=== PATIENT | male | born 1940 | race Caucasian/White ===

== ENCOUNTER 2022-04-22 20:42 | Emergency (ER) | payer MEDICARE, OTHER, SELFPAY ==
[2022-04-22 20:48] VITALS: BP 176/76; PULSE 56; RESP 20; TEMP 36.5; O2SAT 100; BMI 20.9
[2022-04-22 21:24] VITALS: BP 172/78; PULSE 53; RESP 12; TEMP 36.4; O2SAT 100
--- NOTE | 2022-04-22 21:34 | PC.NURSE ---
Pt aox3 with family at the bedside. Breaths are even and unlabored. Abd soft and non tender. Skin pink warm and dry. No edema noted. Reports no pain at this time. No apparent distress noted. Pt and family member report being sent by psychiatrist for admission into [facility] for medication review. Reports hx of bipolar disorder and increased agitation/aggression at times. No aggression today. Pt calm and cooperative. Will continue to monitor.
--- NOTE | 2022-04-22 21:40 | ED.GENADULT ---
HPI - General Adult General Chief complaint: General Medical Stated complaint: Med review Time Seen by Provider: 04/22/22 21:39 Source: patient and family Mode of arrival: ambulatory Limitations: no limitations History of Present Illness HPI narrative: Patient history of dementia, bipolar disorder, hypothyroidism on lithium, Lamictal and levothyroxine brought by his for worsening of dementia patient has been wandering in the night had a VD chest with patient's psychiatrist who advised patient to be admitted as inpatient for further evaluation and medication adjustment patient denies any complaints feels that he was brought to the hospital because his wants him to be evaluated does not think anything wrong with him although he admitted that he feel depressed and is forgetful 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 had MRI of brain and previous evaluations at [facility] Related Data Home Medications Medication Instructions Recorded Confirmed lamotrigine 25 mg tablet 1 tab PO DAILY 04/22/22 04/22/22 levothyroxine 100 mcg tablet 1 tab PO DAILY@0630 04/22/22 04/22/22 lithium carbonate 150 mg capsule 1 cap PO BID 04/22/22 04/22/22 Allergies Allergy/AdvReac Type Severity Reaction Status Date / Time No Known Allergies Allergy Verified 04/22/22 21:44 Review of Systems Review of Systems: Yes all other systems are reviewed and are negative [facility] Past Medical History Medical History (Updated 04/22/22 @ 23:59 by Gabriel Hoffman MD) Bipolar 1 disorder Dementia Hypothyroidism Social History Social History Smoked in Last 30 Days: No Use of substances other than those prescribed or required for medical reasons: No Advance Directives: No Physical Exam ED Vital Signs: Vital Signs - 24 hr 04/22/22 20:48 04/22/22 21:24 Temperature 97.7 F 97.6 F Pulse Rate 56 53 Respiratory Rate 20 12 Blood Pressure 176/76 H 172/78 H Pulse Oximetry 100 100 Oxygen Delivery Method Room Air Room Air BMI result Body Mass Index 20.9 Appearance: Alert. Oriented X2-3. No acute distress. Eyes: PERRLA, No Nystagmus ENT: Pharynx normal. Oral Mucosa moist Neck: Normal inspection. Neck supple. CVS: Normal heart rate and rhythm. Pulses normal. Respiratory: No respiratory distress. Equal air entry bilateral, no wheezing/rales/rhonchi Abdomen: Soft and nontender. Bowel sounds are present, no mass palpable, no CVA tenderness Skin: Skin warm and dry. Normal skin color. Normal skin turgor. Extremities: No lower extremity edema. No calf tenderness psych: Stable mood denies any SI or HI no hallucinations Neuro: Oriented X 2-3. No motor deficit. No sensory deficit.No cerebellar signs , cranial nerves II-XII intact Medical Decision Making Medical Decision Making [facility] Narrative: Patient seen by care team for worsening of dementia and decided to let the patient go home to be admitted as a direct admission tomorrow. Patient's agreed with this plan. Lab Data [facility] Lab Attestation statement: I reviewed the patient's lab results. 04/22/22 22:25 04/22/22 22:25 Labs: Lab Results 04/22/22 04/22/22 04/22/22 Range/Units 22:25 22:25 22:25 WBC 7.9 (4.8-10.8) X10*3/uL RBC 4.13 L (4.60-5.80) X10*6/uL Hgb 13.4 L (14.0-18.0) g/dl Hct 39.8 L (42.0-52.0) % MCV 96.4 (80.0-98.0) fL MCH 32.4 (27.0-33.0) pg MCHC 33.7 (31.0-36.0) g/dl RDW 12.8 (11.0-16.0) % Plt Count 236 (160-400) X10*3/uL MPV 9.4 (9.4-12.4) fL Immature Gran % (Auto) 0.5 H (0.0-0.4) % Neut % (Auto) 62.2 (45-73) % Lymph % (Auto) 24.7 (20-40) % [place] % (Auto) 11.1 H (2-11) % Eos % (Auto) 0.6 (0-4) % Baso % (Auto) 0.9 (0-2) % Lymph # (Auto) 2.0 (1.2-4.9) X10*3/uL [place] # (Auto) 0.9 (0.1-1.2) X10*3/uL Eos # (Auto) 0.1 (0.0-0.4) X10*3/uL Baso # (Auto) 0.1 (0.0-0.2) X10*3/uL Abs Immat Gran (auto) 0.04 H (0.00-0.03) X10*3/uL Absolute Neuts (auto) 4.9 (2.0-8.3) x10*3/uL Absolute Nucleated RBC 0.000 (0.0-0.012) X10*3/uL Nucleated RBC % (auto) 0.0 (0.0-0.2) /100WBC Sodium (135-145) mmol/L Potassium (3.3-5.1) mmol/L Chloride (96-108) mmol/L Carbon Dioxide (22-29) mmol/L Anion Gap (12-20) BUN (9-16) mg/dL Creatinine (0.5-1.4) mg/dL Estim Creat Clear Calc Estimated GFR Random Glucose (60-115) mg/dL Calcium (8.4-10.2) mg/dL Magnesium (1.6-2.6) mg/dL Total Bilirubin (0.0-1.0) mg/dL AST (5-37) U/L ALT (0-40) U/L Alkaline Phosphatase (39-117) U/L Total Protein (6.5-8.0) g/dL Albumin (3.5-5.0) g/dL TSH (0.32-4.0) uIU/mL Urine Color Urine Appearance Urine pH (5.0-9.0) Ur Specific [place] (1.005-1.025) Urine Protein (Neg-Trace) mg/dL Urine Glucose (UA) (Negative) mg/dL Urine Ketones (Negative) mg/dL Urine Blood (Negative) Urine Nitrite (Negative) Ur Leukocyte Esterase (Negative) Urine Opiates Screen (Not Detect) Urine Fentanyl Screen (Not Detect) Ur Barbiturates Screen (Not Detect) Ur Phencyclidine Scrn (Not Detect) Ur Amphetamines Screen (Not Detect) U Benzodiazepines Scrn (Not Detect) [place] 0.35 L (0.60-1.20) mmol/L Urine Cocaine Screen (Not Detect) U Marijuana (THC) Screen (Not Detect) COVID-19 (CRISTELA) Negative (Negative) COVID-19 Clin Com See Note 04/22/22 04/22/22 04/22/22 Range/Units 22:25 22:51 22:51 WBC (4.8-10.8) X10*3/uL RBC (4.60-5.80) X10*6/uL Hgb (14.0-18.0) g/dl Hct (42.0-52.0) % MCV (80.0-98.0) fL MCH (27.0-33.0) pg MCHC (31.0-36.0) g/dl RDW (11.0-16.0) % Plt Count (160-400) X10*3/uL MPV (9.4-12.4) fL Immature Gran % (Auto) (0.0-0.4) % Neut % (Auto) (45-73) % Lymph % (Auto) (20-40) % [place] % (Auto) (2-11) % Eos % (Auto) (0-4) % Baso % (Auto) (0-2) % Lymph # (Auto) (1.2-4.9) X10*3/uL [place] # (Auto) (0.1-1.2) X10*3/uL Eos # (Auto) (0.0-0.4) X10*3/uL Baso # (Auto) (0.0-0.2) X10*3/uL Abs Immat Gran (auto) (0.00-0.03) X10*3/uL Absolute Neuts (auto) (2.0-8.3) x10*3/uL Absolute Nucleated RBC (0.0-0.012) X10*3/uL Nucleated RBC % (auto) (0.0-0.2) /100WBC Sodium 139 (135-145) mmol/L Potassium 3.6 (3.3-5.1) mmol/L Chloride 103 (96-108) mmol/L Carbon Dioxide 30 H (22-29) mmol/L Anion Gap 10 L (12-20) BUN 20 H (9-16) mg/dL Creatinine 0.87 (0.5-1.4) mg/dL Estim Creat Clear Calc 56.4 Estimated GFR > 60 Random Glucose 95 (60-115) mg/dL Calcium 9.2 (8.4-10.2) mg/dL Magnesium 2.1 (1.6-2.6) mg/dL Total Bilirubin 0.3 (0.0-1.0) mg/dL AST 21 (5-37) U/L ALT 14 (0-40) U/L Alkaline Phosphatase 59 (39-117) U/L Total Protein 6.7 (6.5-8.0) g/dL Albumin 3.9 (3.5-5.0) g/dL TSH 1.73 (0.32-4.0) uIU/mL Urine Color Yellow Urine Appearance Clear Urine pH 7.0 (5.0-9.0) Ur Specific [place] 1.015 (1.005-1.025) Urine Protein Negative (Neg-Trace) mg/dL Urine Glucose (UA) Negative (Negative) mg/dL Urine Ketones Negative (Negative) mg/dL Urine Blood Negative (Negative) Urine Nitrite Negative (Negative) Ur Leukocyte Esterase Negative (Negative) Urine Opiates Screen Not Detected (Not Detect) Urine Fentanyl Screen Not Detected (Not Detect) Ur Barbiturates Screen Not Detected (Not Detect) Ur Phencyclidine Scrn Not Detected (Not Detect) Ur Amphetamines Screen Not Detected (Not Detect) U Benzodiazepines Scrn Not Detected (Not Detect) [place] (0.60-1.20) mmol/L Urine Cocaine Screen Not Detected (Not Detect) U Marijuana (THC) Screen Not Detected (Not Detect) COVID-19 (CRISTELA) (Negative) COVID-19 Clin Com Independent Interpretation I performed an independent interpretation of an: EKG Interpretation: Sinus bradycardia heart rate 50 beats per minute right bundle-branch block no acute ST T wave changes no acute ischemia Discharge Plan Discharge Clinical Impression: Dementia Patient Disposition: Home, Self-Care Instructions: Dementia (ED) Additional Instructions: Continue your medication and follow up with your psychiatrist Prescriptions: No Action lithium carbonate 150 mg capsule 1 cap PO BID lamotrigine 25 mg tablet 1 tab PO DAILY levothyroxine 100 mcg tablet 1 tab PO DAILY@0630
--- NOTE | 2022-04-22 21:54 | ECG_ITS ---
Test Reason : QTC Blood Pressure : / mmHG Vent. Rate : 050 BPM Atrial Rate : 050 BPM P-R Int : 150 ms QRS Dur : 136 ms QT Int : 498 ms P-R-T Axes : 051 -51 019 degrees QTc Int : 454 ms Sinus bradycardia Right bundle branch block Left anterior fascicular block Bifascicular block Minimal voltage criteria for LVH, may be normal variant ( R in aVL ) Septal infarct , age undetermined Abnormal ECG No previous ECGs available Referred By: Gabriel Hoffman Electronically Signed By:NEWTON WARD MD
--- NOTE | 2022-04-22 22:26 | PHA.MEDREC ---
Pharmacy Consult ? Medication Reconciliation Pharmacy has completed the medication reconciliation. Patient's at bedside, explained that patient was weened off lamotrigine but was initiated back on for 1 tablet a day. Pt did not have PM dose of lithium today.
[2022-04-22 22:31] LABS: MANUAL DIFF FLAG NO
--- NOTE | 2022-04-22 22:32 | MHC.CARE ---
CARE Team made aware that pt may present to for admission to [facility] earlier today by Dr. Bowman. Pt will need medical clearance followed by a crisis assessment. Bed being saved on S1 should pt meet IPLOC.
[2022-04-22 22:36] LABS: Basophils Absolute Auto 0.1 X10*3/uL (0.0-0.2); Basophils Percent Auto 0.9 % (0-2); Eosinophils Absolute Auto 0.1 X10*3/uL (0.0-0.4); Eosinophils Percent Auto 0.6 % (0-4); Hematocrit 39.8 % (42.0-52.0); Hemoglobin 13.4 g/dl (14.0-18.0); Imm Gran Abs Auto 0.04 X10*3/uL (0.00-0.03); Imm Gran Pct Auto 0.5 % (0.0-0.4); Lymphocytes Percent Auto 24.7 % (20-40); Mean Corpuscular HGB Conc 33.7 g/dl (31.0-36.0); Mean Corpuscular Hemoglobin 32.4 pg (27.0-33.0); Mean Corpuscular Volume 96.4 fL (80.0-98.0); Mean Platelet Volume 9.4 fL (9.4-12.4); Monocytes Absolute Auto 0.9 X10*3/uL (0.1-1.2); Monocytes Percent Auto 11.1 % (2-11); Neutrophils Absolute Auto 4.9 x10*3/uL (2.0-8.3); Neutrophils Percent Auto 62.2 % (45-73); Platelet Count 236 X10*3/uL (160-400); Red Blood Count 4.13 X10*6/uL (4.60-5.80); Red Cell Distribution Width 12.8 % (11.0-16.0); White Blood Count 7.9 X10*3/uL (4.8-10.8)
[2022-04-22 22:38] LABS: Lithium 0.35 mmol/L (0.60-1.20)
[2022-04-22 22:53] LABS: Alanine Aminotransferase 14 U/L (0-40); Albumin Level 3.9 g/dL (3.5-5.0); Alkaline Phosphatase 59 U/L (39-117); Anion Gap 10 (12-20); Aspartate Amino Transferase 21 U/L (5-37); Bilirubin Total 0.3 mg/dL (0.0-1.0); Blood Urea Nitrogen 20 mg/dL (9-16); Calcium 9.2 mg/dL (8.4-10.2); Carbon Dioxide 30 mmol/L (22-29); Chloride 103 mmol/L (96-108); Creatinine Clr Calc Pharmacy 56.4; Estimated Glomerular Filt Rate > 60; Glucose Random 95 mg/dL (60-115); Magnesium 2.1 mg/dL (1.6-2.6); Potassium 3.6 mmol/L (3.3-5.1); Sodium 139 mmol/L (135-145); Total Protein 6.7 g/dL (6.5-8.0)
[2022-04-22 23:05] LABS: COVID-19 Test Negative (Negative); IDNOW Serial# 6674DD1D
[2022-04-22 23:05] LABS: Appearance Urine Clear; Color Urine Yellow; Glucose Urine UA Negative (Negative); Leukocyte Esterase Urine Negative (Negative); Nitrite Urine Negative (Negative); Specific Gravity - Urine 1.015 (1.005-1.025); Urine Blood Negative (Negative); Urine Ketones Negative (Negative); Urine Protein Negative (Neg-Trace)
[2022-04-22 23:07] LABS: Thyroid Stimulating Hormone 1.73 uIU/mL (0.32-4.0)
[2022-04-22 23:47] LABS: Amphetamine Screen Urine Not Detected (Not Detect); Barbiturates, Urine Not Detected (Not Detect); Benzodiazepines Screen Urine Not Detected (Not Detect); Cannabinoid Screen Urine Not Detected (Not Detect); Cocaine Screen Urine Not Detected (Not Detect); Fentanyl, urine Not Detected (Not Detect); Opiate Screen Urine Not Detected (Not Detect); Phencyclidine Screen Urine Not Detected (Not Detect)
== END 2022-04-23 00:11 | disposition home or self-care (01) ==
PROVIDERS: Emergency Provider Internal Medicine; PCP Family Medicine
DX: F03.90 Unspecified dementia, unspecified severity, without behavioral disturbance, psychotic disturbance, mood disturbance, and anxiety (principal); E03.9 Hypothyroidism, unspecified; F31.9 Bipolar disorder, unspecified; Z79.899 Other long term (current) drug therapy; Z20.822 Contact with and (suspected) exposure to COVID-19
CPT/HCPCS: 36415; 80053; 80178; 80307; 81003; 83735; 84443; 85025; 87635; 93005; 99284

== ENCOUNTER 2022-04-23 10:10 | Inpatient (IN) | payer MEDICARE, OTHER, SELFPAY ==
[2022-04-23] VITALS (8 sets, daily range): BP systolic 68–168; BP diastolic 30–88; PULSE 50–99; RESP 16–18; TEMP 36.2–37; O2SAT 96–100; BMI 23.8
--- NOTE | 2022-04-23 | ECG_ITS ---
Test Reason : rapid response Blood Pressure : / mmHG Vent. Rate : 075 BPM Atrial Rate : 075 BPM P-R Int : 154 ms QRS Dur : 128 ms QT Int : 432 ms P-R-T Axes : 000 -31 062 degrees QTc Int : 482 ms Normal sinus rhythm Left axis deviation Right bundle branch block Left ventricular hypertrophy Septal infarct , age undetermined Abnormal ECG When compared with ECG of 23-APR-2022 12:38, Nonspecific ST abnormality has improved in lateral leads Referred By: Jorge Medley Electronically Signed By:NEWTON WARD MD
--- NOTE | ~2022-04-23 | CT_ITS ---
EXAMINATION: CT HEAD WITHOUT CONTRAST CLINICAL INFORMATION: Head injury. COMPARISON: None. TECHNIQUE: Contiguous axial imaging was performed from the skull base to vertex without intravenous administration of contrast. Coronal and sagittal reformatted images are performed at the CT scanner. [This CT examination was performed using dose optimization techniques as appropriate, variously including the following: *Automated exposure control *Adjustment of mA and/or kV according to patient size (this includes techniques or standardized protocols for targeted exams where dose is matched to indication/reason for exam; i.e. extremities or head) *Use of iterative reconstruction technique] DLP: 705 mGy-cm. FINDINGS: There is no evidence of acute intracranial hemorrhage or territorial infarction. No abnormal mass-effect or midline shift is seen. [place] to white matter differentiation is well preserved. No extra-axial fluid collections are identified. The ventricles are normal in size. There is no abnormal attenuation within the brain parenchyma. There is no osseous abnormality. The mastoid air cells and visualized portions of the paranasal sinuses are well-aerated. CT/CT head/brain wo IV con IMPRESSION: No acute intracranial pathology.
--- NOTE | 2022-04-23 10:34 | PC.NURSE ---
Per [facility] Dir Celeste Oneill, medical clearance from yesterday will be appropriate and accepted for in-patient admission to [facility] today.
--- NOTE | 2022-04-23 10:37 | ED.PSYCH ---
HPI - Psych General Chief Complaint: Psychiatric Symptoms Stated Complaint: crisis Time Seen by Provider: 04/23/22 10:37 Source: patient and old records reviewed Limitations: no limitations History of Present Illness HPI Narrative: 81 yo male with history of dementia, depression, bipolar disorder, hypothyroidism who presents to the ER as a direct admission to Geriatric Psych unit. He was seen here in the ER last night, had labs performed and was medically cleared. He went home late last night with plan to come back as a direct admit today. His reports worsening dementia with noctural wandering, confusion and aggression for the last several weeks along with worsening depression. Patient's helps to provide history as patient offers no complaints. He claims to be sleeping well, eating well, and with a good mood. His reports he has been getting up several times at night, wandering and confused. He is barely redirectable. Seems to be in a fugue state. He has also been increasingly depressed. 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 He has a long time psychiatrist in [place]. They were tapering him off of Lamotrigine recently which seemed to make his depression worse. His psychiatrist referred him to come here for psych admission and medication adjustments. complaint: altered mental status Onset (ago): week(s) Duration: getting worse Relieving factors: none Exacerbating factors: none Associated psychiatric symptoms: depression Associated symptoms: denies other symptoms Treatments prior to arrival: none Related Data Home Medications Medication Instructions Recorded Confirmed lamotrigine 25 mg tablet 1 tab PO DAILY 04/22/22 04/23/22 levothyroxine 100 mcg tablet 1 tab PO DAILY@0630 04/22/22 04/23/22 lithium carbonate 150 mg capsule 1 cap PO BID 04/22/22 04/23/22 Allergies Allergy/AdvReac Type Severity Reaction Status Date / Time No Known Allergies Allergy Verified 04/22/22 21:44 Review of Systems Review of Systems: Yes all other systems are reviewed and are negative [facility] Past Medical History Medical History (Updated 04/23/22 @ 10:43 by AURORA Walker) Bipolar 1 disorder Dementia Hypothyroidism Social History Social History Advance Directives: No Physical Exam Vital Signs: Vital Signs: Last Vital Signs Temp 98.6 F 04/23/22 10:18 Pulse 72 04/23/22 10:18 Resp 18 04/23/22 10:18 BP 143/68 H 04/23/22 10:18 Pulse Ox 98 04/23/22 10:18 O2 Del Method 04/23/22 10:18 BMI result Body Mass Index 23.8 Appearance: Alert elderly male. Oriented X3. No acute distress. Eyes: Pupils equal, round and reactive to light. ENT: Pharynx normal. Neck: Normal inspection. Neck supple. CVS: Normal heart rate and rhythm. Pulses normal. Respiratory: No respiratory distress. Breath sounds normal. Abdomen: Soft and nontender. +BS x4 Skin: Skin warm and dry. Normal skin color. Normal skin turgor. No rashes. Extremities: No lower extremity edema. Neuro/psych: Oriented X 3. No motor deficit. No sensory deficit. CN II-XII, slow but steady gait Course Course Course Narrative: 81 yo male with history of dementia, bipolar d/o on lithium, hypothyroidism who presents to the ER for evaluation of worsening depression and dementia per his . Plan is for direct admission today to [facility] psych. Will repeat urine and covid swab for admission. Other labs reviewed, medically cleared at this time for psych admit. Reevaluation(s) Reevaluation #1: Upon repeat EKG today there was noted to be some new T-wave inversions compared to yesterday. Based on this lab work was performed including basic metabolic panel and high sensitivity troponin. Troponin is 8 which is not consistent with any evidence of cardiac ischemia. This is reassuring. Repeat EKG was done and was similar from prior today. Patient remains asymptomatic from a cardiac standpoint, no chest pain, shortness a breath, dyspnea on exertion, nausea, diaphoresis, dizziness. Case discussed with Dr. Goodman. At this time patient is medically cleared for psychiatric admission. Time: 14:18 Medical Decision Making Medical Decision Making MDM Narrative: 81 yo male with history of dementia, depression, bipolar, hypothyroid presenting with confusion, agitation and wandering at night along with worsening depression in the setting of medication weaning at home. Not suicidal or offering any complaints. Differential Diagnosis Differential Diagnoses: The differential diagnosis associated with the presentation includes worsening dementia, major depression, bipolar, medication side effects, infection less likely as UA negative yesterday Admission/Observation Consideration of admission/observation: Escalation of care including admission/observation considered will require admission to [facility] unit Consult Healthcare Provider Management of the patient was discussed with: Behavioral Health Provider Lab Data [facility] Lab Attestation statement: I reviewed the patient's lab results. no metabolic derangement, no infection 04/23/22 13:01 04/23/22 13:01 Labs: Lab Results 04/23/22 04/23/22 04/23/22 Range/Units 11:35 12:01 13:01 WBC 7.1 (4.8-10.8) X10*3/uL RBC 4.48 L (4.60-5.80) X10*6/uL Hgb 14.6 (14.0-18.0) g/dl Hct 44.4 (42.0-52.0) % MCV 99.1 H (80.0-98.0) fL MCH 32.6 (27.0-33.0) pg MCHC 32.9 (31.0-36.0) g/dl RDW 12.8 (11.0-16.0) % Plt Count 262 (160-400) X10*3/uL MPV 9.4 (9.4-12.4) fL Immature Gran % (Auto) 0.3 (0.0-0.4) % Neut % (Auto) 66.8 (45-73) % Lymph % (Auto) 21.2 (20-40) % [place] % (Auto) 10.0 (2-11) % Eos % (Auto) 0.4 (0-4) % Baso % (Auto) 1.3 (0-2) % Lymph # (Auto) 1.5 (1.2-4.9) X10*3/uL [place] # (Auto) 0.7 (0.1-1.2) X10*3/uL Eos # (Auto) 0.0 (0.0-0.4) X10*3/uL Baso # (Auto) 0.1 (0.0-0.2) X10*3/uL Abs Immat Gran (auto) 0.02 (0.00-0.03) X10*3/uL Absolute Neuts (auto) 4.7 (2.0-8.3) x10*3/uL Absolute Nucleated RBC 0.000 (0.0-0.012) X10*3/uL Nucleated RBC % (auto) 0.0 (0.0-0.2) /100WBC Sodium (135-145) mmol/L Potassium (3.3-5.1) mmol/L Chloride (96-108) mmol/L Carbon Dioxide (22-29) mmol/L Anion Gap (12-20) BUN (9-16) mg/dL Creatinine (0.5-1.4) mg/dL Estim Creat Clear Calc Estimated GFR Random Glucose (60-115) mg/dL Calcium (8.4-10.2) mg/dL Magnesium (1.6-2.6) mg/dL Troponin I High Sens (<3.5-35.0) ng/L Urine Color Yellow Urine Appearance Clear Urine pH 7.0 (5.0-9.0) Ur Specific [place] 1.010 (1.005-1.025) Urine Protein Negative (Neg-Trace) mg/dL Urine Glucose (UA) Negative (Negative) mg/dL Urine Ketones Negative (Negative) mg/dL Urine Blood Negative (Negative) Urine Nitrite Negative (Negative) Ur Leukocyte Esterase Negative (Negative) COVID-19 (CRISTELA) Negative (Negative) COVID-19 Clin Com See Note 04/23/22 04/23/22 Range/Units 13:01 13:01 WBC (4.8-10.8) X10*3/uL RBC (4.60-5.80) X10*6/uL Hgb (14.0-18.0) g/dl Hct (42.0-52.0) % MCV (80.0-98.0) fL MCH (27.0-33.0) pg MCHC (31.0-36.0) g/dl RDW (11.0-16.0) % Plt Count (160-400) X10*3/uL MPV (9.4-12.4) fL Immature Gran % (Auto) (0.0-0.4) % Neut % (Auto) (45-73) % Lymph % (Auto) (20-40) % [place] % (Auto) (2-11) % Eos % (Auto) (0-4) % Baso % (Auto) (0-2) % Lymph # (Auto) (1.2-4.9) X10*3/uL [place] # (Auto) (0.1-1.2) X10*3/uL Eos # (Auto) (0.0-0.4) X10*3/uL Baso # (Auto) (0.0-0.2) X10*3/uL Abs Immat Gran (auto) (0.00-0.03) X10*3/uL Absolute Neuts (auto) (2.0-8.3) x10*3/uL Absolute Nucleated RBC (0.0-0.012) X10*3/uL Nucleated RBC % (auto) (0.0-0.2) /100WBC Sodium 141 (135-145) mmol/L Potassium 4.5 D (3.3-5.1) mmol/L Chloride 103 (96-108) mmol/L Carbon Dioxide 29 (22-29) mmol/L Anion Gap 14 (12-20) BUN 14 (9-16) mg/dL Creatinine 0.93 (0.5-1.4) mg/dL Estim Creat Clear Calc 57.1 Estimated GFR > 60 Random Glucose 90 (60-115) mg/dL Calcium 10.0 D (8.4-10.2) mg/dL Magnesium 2.1 (1.6-2.6) mg/dL Troponin I High Sens 8.4 (<3.5-35.0) ng/L Urine Color Urine Appearance Urine pH (5.0-9.0) Ur Specific [place] (1.005-1.025) Urine Protein (Neg-Trace) mg/dL Urine Glucose (UA) (Negative) mg/dL Urine Ketones (Negative) mg/dL Urine Blood (Negative) Urine Nitrite (Negative) Ur Leukocyte Esterase (Negative) COVID-19 (CRISTELA) (Negative) COVID-19 Clin Com Independent Interpretation I performed an independent interpretation of an: EKG Interpretation: 04/22 sinus bradycardia with bifasicular block, hr 50, no ST segment elevations 04/23 11:41 sinus bradycardia with bifasicular block, hr 53, new deep T-wave inversions in leads 2, 3, AVF and V3 through V6 that were not present yesterday 04/23 12:38 sinus bradycardia w bifasicular block, HR 46, t-wave inversions and 1mm depressions present in in leads II,III,aVF, V3-V6 Independent Historian Clinical information obtained from an independent historian. History obtained from or confirmed by: Spouse provides reliable history and concerns External Record Review External record reviewed: Outpatient record and Prior outpatient labs Chronic Conditions Patient?s care impacted by: Other (dementia) Critical Care Time Critical Care Time Critical Care Time: No Discharge Plan Discharge Clinical Impression: Dementia, Bipolar disorder Patient Disposition: Admitted As Inpatient Interventions: [place]-Suicide Risk Severity Scale Last Done: 04/23/22 12:30 Admission Worksheet (ED) Last Done: 04/23/22 15:12 Discharge Date/Time: 04/23/22 15:13
--- NOTE | 2022-04-23 11:35 | ECG_ITS ---
Test Reason : check qt Blood Pressure : / mmHG Vent. Rate : 053 BPM Atrial Rate : 053 BPM P-R Int : 150 ms QRS Dur : 134 ms QT Int : 476 ms P-R-T Axes : 061 -41 -48 degrees QTc Int : 446 ms Sinus bradycardia Left axis deviation Right bundle branch block Left ventricular hypertrophy with repolarization abnormality ( R in aVL ) Abnormal ECG When compared with ECG of 22-APR-2022 22:01, Criteria for Septal infarct are no longer Present T wave inversion now evident in Inferior leads T wave inversion now evident in Anterolateral leads Referred By: Clarissa Rey Electronically Signed By:NEWTON WARD MD
--- NOTE | 2022-04-23 11:38 | PC.NURSE ---
Report given to Pattie Philip Pt calm and coop at this time, sitting on bed with at bedside. Plan to do an EKG, pt provided with pitcher of water and educated that he needs to provide a urine to complete medical clearance for admission. Pt agreeable to this plan at this time.
[2022-04-23 12:01] LABS: COVID-19 Test Negative (Negative); IDNOW Serial# BCCEAD1C
--- NOTE | 2022-04-23 12:11 | ECG_ITS ---
Test Reason : REPEAT Blood Pressure : / mmHG Vent. Rate : 046 BPM Atrial Rate : 046 BPM P-R Int : 144 ms QRS Dur : 130 ms QT Int : 470 ms P-R-T Axes : 004 -33 -54 degrees QTc Int : 411 ms Sinus bradycardia Left axis deviation Right bundle branch block Left ventricular hypertrophy with repolarization abnormality ( R in aVL ) Abnormal ECG When compared with ECG of 23-APR-2022 11:41, No significant change was found Referred By: Clarissa Rey Electronically Signed By:NEWTON WARD MD
[2022-04-23 12:19] LABS: Appearance Urine Clear; Color Urine Yellow; Glucose Urine UA Negative (Negative); Leukocyte Esterase Urine Negative (Negative); Nitrite Urine Negative (Negative); Urine Blood Negative (Negative); Urine Ketones Negative (Negative); Urine Protein Negative (Neg-Trace)
[2022-04-23 13:08] LABS: MANUAL DIFF FLAG NO
[2022-04-23 13:13] LABS: Basophils Absolute Auto 0.1 X10*3/uL (0.0-0.2); Basophils Percent Auto 1.3 % (0-2); Eosinophils Percent Auto 0.4 % (0-4); Hematocrit 44.4 % (42.0-52.0); Hemoglobin 14.6 g/dl (14.0-18.0); Imm Gran Abs Auto 0.02 X10*3/uL (0.00-0.03); Imm Gran Pct Auto 0.3 % (0.0-0.4); Lymphocytes Absolute Auto 1.5 X10*3/uL (1.2-4.9); Lymphocytes Percent Auto 21.2 % (20-40); Mean Corpuscular HGB Conc 32.9 g/dl (31.0-36.0); Mean Corpuscular Hemoglobin 32.6 pg (27.0-33.0); Mean Corpuscular Volume 99.1 fL (80.0-98.0); Mean Platelet Volume 9.4 fL (9.4-12.4); Monocytes Absolute Auto 0.7 X10*3/uL (0.1-1.2); Neutrophils Absolute Auto 4.7 x10*3/uL (2.0-8.3); Neutrophils Percent Auto 66.8 % (45-73); Platelet Count 262 X10*3/uL (160-400); Red Blood Count 4.48 X10*6/uL (4.60-5.80); Red Cell Distribution Width 12.8 % (11.0-16.0); White Blood Count 7.1 X10*3/uL (4.8-10.8)
[2022-04-23 13:27] LABS: Anion Gap 14 (12-20); Blood Urea Nitrogen 14 mg/dL (9-16); Carbon Dioxide 29 mmol/L (22-29); Chloride 103 mmol/L (96-108); Creatinine Clr Calc Pharmacy 57.1; Estimated Glomerular Filt Rate > 60; Glucose Random 90 mg/dL (60-115); Magnesium 2.1 mg/dL (1.6-2.6); Potassium 4.5 mmol/L (3.3-5.1); Sodium 141 mmol/L (135-145)
[2022-04-23 13:33] LABS: Troponin-I High Sensitivity 8.4 ng/L (<3.5-35.0)
--- NOTE | 2022-04-23 14:10 | PC.NURSE ---
Moreno Telles (pt's ) at [phone]
--- NOTE | 2022-04-23 14:52 | PHA.MEDREC ---
Pharmacy Consult ? Medication Reconciliation Pharmacy has completed the medication reconciliation. Patient was discharged yesterday, 04/22/22. Reviewed medication list against discharge list to complete med rec.
--- NOTE | 2022-04-23 16:07 | PC.NURSE ---
Pt. arrived on this [place] [facility] [place]. Pt. arrived at 1515 and was given a tour of the unit and had VS taken-stable at this time. Pt. has a soft/gentle demeanor and expressions are congruent with statements. Pt. states that he gets agitated at home d/t worsening depression and anxiety and he has a hard time calming self down . Pt. states that his goal is to have his medications reviewed and gain a better understanding of self from psychiatrist. 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 Pt is confused and sensorium is not in tact. Pt. will begin a sentance and then move to a different topic within the same sentence, forgetting about the first topic. Pt. lives with his in a single family home and they have homemaking services for cleaning and grocery shopping. Pt. is independent with ADL's and is ambulatory without a device.
[2022-04-23] MEDS: hydrOXYzine HCL 25 MG TABLET PO (17:35)
[2022-04-23] MEDS: OLANZapine 5 MG TABLET PO (17:37)
[2022-04-23] MEDS: Lithium Carbonate 300 MG TABLET 150 MG PO (20:44)
[2022-04-23] MEDS: traZODone HCL 50 MG TABLET PO (20:45)
[2022-04-23 22:00] LABS: Glucose, Whole Blood 120 mg/dL (60-115)
[2022-04-23 22:54] LABS: Lithium 0.34 mmol/L (0.60-1.20)
[2022-04-23 23:08] LABS: Troponin-I High Sensitivity 16.6 ng/L (<3.5-35.0)
[2022-04-23 23:22] LABS: Thyroid Stimulating Hormone 5.54 uIU/mL (0.32-4.0)
--- NOTE | 2022-04-23 23:30 | PC.NURSE ---
pt stood up at the table in common area and fell backward. due to visual obstruction of table we could not witness pts striking head. pt is found laying supine on the floor with head elevated off floor. pt states that he struck head. pt reports being dizzy. his skin is cool and clammy. b/p 56/40 auto rechecked manual 68/30. apical hr 60's bpm and slightly irregular. pt is speaking slowly and confused. ION IMPLANT MACHINE OPERATOR called 1. dr sherman responded and examined pt. 2. iv angio 20# 3. pt to have stat head ct 4. pt will be transferred to med/surg for iv hydration following ct 5. claire notified of fall.
--- NOTE | 2022-04-23 23:30 | PM.PSYDC ---
DS: Providers Provider Date of Service: 04/23/22 Date of admission: 04/23/22 14:34 Date of discharge: 04/23/22 Primary care physician: Tanya Cantu MD Admitting clinician: Jorge Medley Attending physician on admission: Jorge Medley Attending physician on discharge: Tyree Chavez Discharging clinician: Marisel Castellanos DS: Diagnosis Discharge Diagnosis (1) Dementia: Status: Acute (2) Bipolar disorder: Status: Acute DS: Medications Discharge Medications Home Medications: Home Medications Medication Instructions Recorded Confirmed lamotrigine 25 mg tablet 1 tab PO DAILY 04/22/22 04/23/22 levothyroxine 100 mcg tablet 1 tab PO DAILY@0630 04/22/22 04/23/22 lithium carbonate 150 mg capsule 1 cap PO BID 04/22/22 04/23/22 Mental Status Exam Mental Status Exam Narrative: Pt was not seen by this typewriter mechanic. Discharge to medicine during the late evening. Data Data Completed and Pending Completed studies during hospitalization [Text1]: 04/23/22 04/23/22 04/23/22 11:35 12:01 13:01 WBC 7.1 RBC 4.48 L Hgb 14.6 Hct 44.4 MCV 99.1 H MCH 32.6 MCHC 32.9 RDW 12.8 Plt Count 262 MPV 9.4 Immature Gran % (Auto) 0.3 Neut % (Auto) 66.8 Lymph % (Auto) 21.2 [place] % (Auto) 10.0 Eos % (Auto) 0.4 Baso % (Auto) 1.3 Lymph # (Auto) 1.5 [place] # (Auto) 0.7 Eos # (Auto) 0.0 Baso # (Auto) 0.1 Abs Immat Gran (auto) 0.02 Absolute Neuts (auto) 4.7 Absolute Nucleated RBC 0.000 Nucleated RBC % (auto) 0.0 Sodium Potassium Chloride Carbon Dioxide Anion Gap BUN Creatinine Estim Creat Clear Calc Estimated GFR POC Glucose Random Glucose Calcium Magnesium Troponin I High Sens TSH Urine Color Yellow Urine Appearance Clear Urine pH 7.0 Ur Specific [place] 1.010 Urine Protein Negative Urine Glucose (UA) Negative Urine Ketones Negative Urine Blood Negative Urine Nitrite Negative Ur Leukocyte Esterase Negative [place] COVID-19 (CRISTELA) Negative COVID-19 Clin Com See Note 04/23/22 04/23/22 04/23/22 13:01 13:01 21:55 WBC RBC Hgb Hct MCV MCH MCHC RDW Plt Count MPV Immature Gran % (Auto) Neut % (Auto) Lymph % (Auto) [place] % (Auto) Eos % (Auto) Baso % (Auto) Lymph # (Auto) [place] # (Auto) Eos # (Auto) Baso # (Auto) Abs Immat Gran (auto) Absolute Neuts (auto) Absolute Nucleated RBC Nucleated RBC % (auto) Sodium 141 Potassium 4.5 D Chloride 103 Carbon Dioxide 29 Anion Gap 14 BUN 14 Creatinine 0.93 Estim Creat Clear Calc 57.1 Estimated GFR > 60 POC Glucose 120 H Random Glucose 90 Calcium 10.0 D Magnesium 2.1 Troponin I High Sens 8.4 TSH Urine Color Urine Appearance Urine pH Ur Specific [place] Urine Protein Urine Glucose (UA) Urine Ketones Urine Blood Urine Nitrite Ur Leukocyte Esterase [place] COVID-19 (CRISTELA) COVID-19 Jawbone 04/23/22 04/23/22 04/23/22 22:35 22:35 22:35 WBC RBC Hgb Hct MCV MCH MCHC RDW Plt Count MPV Immature Gran % (Auto) Neut % (Auto) Lymph % (Auto) [place] % (Auto) Eos % (Auto) Baso % (Auto) Lymph # (Auto) [place] # (Auto) Eos # (Auto) Baso # (Auto) Abs Immat Gran (auto) Absolute Neuts (auto) Absolute Nucleated RBC Nucleated RBC % (auto) Sodium Potassium Chloride Carbon Dioxide Anion Gap BUN Creatinine Estim Creat Clear Calc Estimated GFR POC Glucose Random Glucose Calcium Magnesium Troponin I High Sens 16.6 D TSH 5.54 H Urine Color Urine Appearance Urine pH Ur Specific [place] Urine Protein Urine Glucose (UA) Urine Ketones Urine Blood Urine Nitrite Ur Leukocyte Esterase [place] 0.34 L COVID-19 (CRISTELA) COVID-19 Clin Com Imaging Diagnostic Imaging Impressions Head CT 04/23/22 22:55 IMPRESSION: No acute intracranial pathology. DS: Summary Hospital Course Hospital Course: Pt admitted 04/23/22 for treatment of dementia and bipolar disorder with agitation. Pt sustained a fall and was transferred to medicine for ongoing monitoring and treatment Time spent discussing smoking cessation with patient: 3 to 10 minutes Status at Discharge Functional status at discharge: bed bound Overall status at discharge: patient is not back to baseline Time Spent with Patient Time attestation: Total time managing care of this patient today _15___ minutes. Time spent: Less than 30 minutes Discharge Plan Discharge Anticipated Discharge Date/Time: 04/23/22 23:24 Patient Disposition: Xfer Other Discharge Diagnosis: Dementia Bipolar Disorder Referrals: Tanya Cantu MD [Primary Care Provider] - 1 Week Discharge Medications: Continued lithium carbonate 150 mg capsule 1 cap PO BID lamotrigine 25 mg tablet 1 tab PO DAILY levothyroxine 100 mcg tablet 1 tab PO DAILY@0630 Discharge Orders: Discharge Order (Routine); Ordered 04/23/22 Ordered By: Marisel Castellanos Diet: Advance to usual diet Activity on Discharge: As tolerated Stand Alone Forms: Patient Portal Discharge page Care Plan Goals: Transfer to acute care Health Concerns: Dementia Bipolar Disorder S/P Fall Plan of Treatment: Medical monitoring and care s/p fall Assessment: Pt transferred to medicine Discharge Date/Time: 04/23/22 23:29
== END 2022-04-23 23:29 | disposition other institution (70) | DRG 885 ==
LOC: HO.ED 13:48 → HO.PGERI 14:45
PROVIDERS: Physician Assistant; Student in an Organized Health Care Education/Training Program; Admitting Provider Psychiatry & Neurology Psychiatry; Emergency Provider Emergency Medicine; PCP Family Medicine; Visit Provider Psychiatry & Neurology Psychiatry
DX: F31.9 Bipolar disorder, unspecified (principal); F03.90 Unspecified dementia, unspecified severity, without behavioral disturbance, psychotic disturbance, mood disturbance, and anxiety; E03.9 Hypothyroidism, unspecified; Z20.822 Contact with and (suspected) exposure to COVID-19; Z87.891 Personal history of nicotine dependence; Z79.890 Hormone replacement therapy; Z79.899 Other long term (current) drug therapy
CPT/HCPCS: 36415; 70450; 70551; 80048; 80053; 80178; 80307; 81003; 82947; 83735; 84443; 84484; 85025; 87635; 93005; 99285

== ENCOUNTER 2022-04-23 23:36 | Observation (INO) | payer MEDICARE, OTHER, SELFPAY ==
--- NOTE | 2022-04-23 23:32 | P.HPHOSP_ITS ---
History of Present Illness Date of Service: 04/23/22 Chief Complaint: Pre-syncope This is a 81-year-old male with pertinent history of hypothyroidism, mood disorder, dementia who was admitted to [facility] from the ER for worsening depression and dementia on 04/23. Rapid response was called in the [facility]. Upon arrival, patient stated that as soon as he tried to get up from the chair he got dizzy and fell back. Unclear if he lost consciousness or he hit his head. Patient denied chest discomfort, palpitations, shortness of breath. No jerking movement of extremities noted, no tongue bite, no urinary or bowel incontinence. No facial droop, no slurring of speech, no focal weakness. Patient was hypotensive at the time of my evaluation with heart rate in the 70s. Orthostatic vital signs were positive. As per the nurse, patient received hydroxyzine, trazodone and olanzapine prior to the episode of dizziness. [facility]. Reviewed labs from 04/23. Review of Systems 2 Constitutional: Constitutional: Reports no additional constitutional complaints ENT: Reports dizziness Cardiovascular: Cardiovascular: Reports no additional cardiovascular complaints Respiratory: Respiratory: Reports no additional respiratory complaints Neurologic: Reports dizziness PMFSH Medical History Bipolar 1 disorder Dementia Hypothyroidism Pertinent family history: Not significant Social History Household Members: Spouse Housing: House Do you presently have visiting nurse or other home services: No Patient Tobacco Use Status: Never used Tobacco Advance Directives: No Advance Directives Information Provided: No Advance Directives on File: No Meds Allergies Allergy/AdvReac Type Severity Reaction Status Date / Time No Known Allergies Allergy Verified 04/22/22 21:44 Home Medications Medication Instructions Recorded Confirmed Last Taken Type lamotrigine 25 mg tablet 1 tab PO DAILY 04/22/22 04/23/22 04/23/22 History 08 levothyroxine 100 mcg tablet 1 tab PO DAILY@0630 04/22/22 04/23/22 04/23/22 History 08 lithium carbonate 150 mg capsule 1 cap PO BID 04/22/22 04/23/22 04/23/22 History 08 Physical Exam Vital Signs and Narrative: Elderly male sitting up in chair in no distress Neck supple, no JVD Regular rate and rhythm, S1-S2 heard Regular breath sounds bilaterally, no wheezing or crackles appreciated Abdomen soft nontender, no guarding, no rigidity Patient is awake, alert and oriented to self, place, and person ; no focal motor deficits Psych: Normal mood No pedal edema Assessment and Plan (1) Orthostatic hypotension: Status: Acute (2) Dementia: Status: Acute (3) Bipolar disorder: Status: Acute Plan This is 81-year-old male with pertinent history of hypothyroidism, mood disorder and dementia who was [facility] of presyncope #. Orthostatic presyncope, likely from medications: Patient received olanzapine and trazodone prior to the event which likely caused orthostatic hypotension and dizziness. Will resuscitate with IV crystalloids and repeat orthostatics in a.m. CT head without acute abnormality. Obtain troponin, EKG and TSH. Repeat electrolytes in a.m. #. Bipolar disorder: Defer management to psych #. Hypothyroidism: On Synthroid DVT prophylaxis: Lovenox 40 mg daily Full code Regular diet Time Spent With Patient Time: Total time managing care of this patient today ____ minutes. Quality Stroke Does the patient have a stroke diagnosis?: No VTE Prior VTE?: No VTE Risk Level:: Medical - moderate - high VTE Device Contraindication: Treatment Not Indicated VTE Drug Contraindication: N/A - Med Ordered
[2022-04-23 23:39] VITALS: BP 123/63; PULSE 60; RESP 18; TEMP 36.4; O2SAT 100
--- NOTE | 2022-04-24 | ECG_ITS ---
Test Reason : cp Blood Pressure : / mmHG Vent. Rate : 054 BPM Atrial Rate : 054 BPM P-R Int : 158 ms QRS Dur : 132 ms QT Int : 502 ms P-R-T Axes : 077 -59 034 degrees QTc Int : 476 ms Sinus bradycardia with Premature atrial complexes with Aberrant conduction Right bundle branch block Left anterior fascicular block Bifascicular block Minimal voltage criteria for LVH, may be normal variant ( R in aVL ) Abnormal ECG When compared with ECG of 23-APR-2022 22:07, No significant changes seen Referred By: Blaine Deleon Electronically Signed By:CAMERON MALHOTRA
[2022-04-24] MEDS: 0.9 % Sodium Chloride 250 ML 999 ML IV (00:15)
[2022-04-24] MEDS: 0.9 % Sodium Chloride Flush 3 ML SYRINGE IVFLUSH ×2 (00:15→09:13)
[2022-04-24 00:40] LABS: Troponin-I High Sensitivity 21.9 ng/L (<3.5-35.0)
[2022-04-24 00:56] LABS: Thyroid Stimulating Hormone 3.71 uIU/mL (0.32-4.0)
[2022-04-24 03:31] VITALS: BMI 25.5
[2022-04-24 03:36] VITALS: BP 99/84; PULSE 63; RESP 18; TEMP 36.2; O2SAT 99
[2022-04-24] MEDS: Levothyroxine Sodium 100 MCG TABLET PO (05:03)
[2022-04-24] MEDS: Enoxaparin Sodium 40 MG/0.4 ML SYRINGE SUBCUT (05:03)
[2022-04-24 06:00] LABS: MANUAL DIFF FLAG NO
[2022-04-24 06:04] LABS: Basophils Absolute Auto 0.1 X10*3/uL (0.0-0.2); Basophils Percent Auto 0.5 % (0-2); Eosinophils Percent Auto 0.3 % (0-4); Hematocrit 39.4 % (42.0-52.0); Imm Gran Abs Auto 0.05 X10*3/uL (0.00-0.03); Imm Gran Pct Auto 0.4 % (0.0-0.4); Lymphocytes Percent Auto 17.5 % (20-40); Mean Corpuscular Hemoglobin 32.2 pg (27.0-33.0); Mean Corpuscular Volume 97.5 fL (80.0-98.0); Mean Platelet Volume 9.6 fL (9.4-12.4); Monocytes Percent Auto 8.4 % (2-11); Neutrophils Absolute Auto 8.5 x10*3/uL (2.0-8.3); Neutrophils Percent Auto 72.9 % (45-73); Platelet Count 235 X10*3/uL (160-400); Red Blood Count 4.04 X10*6/uL (4.60-5.80); Red Cell Distribution Width 12.9 % (11.0-16.0); White Blood Count 11.6 X10*3/uL (4.8-10.8)
[2022-04-24 06:35] LABS: Anion Gap 12 (12-20); Blood Urea Nitrogen 17 mg/dL (9-16); Calcium 9.5 mg/dL (8.4-10.2); Carbon Dioxide 29 mmol/L (22-29); Chloride 105 mmol/L (96-108); Creatinine Clr Calc Pharmacy 44.6; Estimated Glomerular Filt Rate > 60; Glucose Random 101 mg/dL (60-115); Potassium 4.1 mmol/L (3.3-5.1); Sodium 142 mmol/L (135-145)
[2022-04-24 07:28] VITALS: BP 150/68; PULSE 68; RESP 18; TEMP 36.5; O2SAT 100
--- NOTE | 2022-04-24 10:49 | PM.DS ---
DS: Providers Provider Date of Service: 04/24/22 Date of admission: 04/23/22 23:36 Date of discharge: 04/24/22 Primary care physician: Tanya Cantu MD Consults: 04/23/22 23:41 Consult to Psychiatry Routine Consulting Provider: Psych Covering Reason for consultation: bipolar disorder 04/24/22 10:11 Consult to Care Team Stat Comment: Reason for consultation: Patient medically stable and ready for return to [facility] DS: Diagnosis Discharge Diagnosis (1) Orthostatic hypotension: Status: Acute (2) Dementia: Status: Acute (3) Bipolar disorder: Status: Acute DS: Summary Hospital Course Hospital Course: 81-year-old male with pertinent history of hypothyroidism, mood disorder, dementia who was admitted to [facility] facility from the ER for worsening depression and dementia on 04/23.? Rapid response was called in the [facility] Unit.? Upon arrival, patient stated that as soon as he tried to get up from the chair he got dizzy and fell back.? Unclear if he lost consciousness or he hit his head.? Patient denied chest discomfort, palpitations, shortness of breath.? No jerking movement of extremities noted, no tongue bite, no urinary or bowel incontinence.? No facial droop, no slurring of speech, no focal weakness.? As per the nurse, patient received hydroxyzine, trazodone and olanzapine prior to the episode of dizziness Hospital course On admission patient's systolic blood pressure in the 70s. Was given IV volume repletion (1 L normal saline) to which he responded well. His blood pressure remains stable overnight and this a.m. BP 150/68 asymptomatic. Episode likely precipitated by patient medication. At this point in time he is medically acceptable for transfer to [facility]. Time Spent with Patient Time attestation: Total time managing care of this patient today ____ minutes. Discharge coordination time: Greater than 30 minutes Quality: Safe Use of Opioids Does Pt have an Active Cancer Diagnosis on the Problem List?: No Quality: Stroke Does the patient have a stroke diagnosis?: No Physical Exam Vital Signs: Vital Signs: Last Vital Signs Temp 97.7 F 04/24/22 07:28 Pulse 68 04/24/22 07:28 Resp 18 04/24/22 07:28 BP 150/68 H 04/24/22 07:28 Pulse Ox 100 04/24/22 07:28 O2 Del Method 04/24/22 07:28 BMI result Body Mass Index 25.5 Const: Other: No acute distress Resp: Other: Clear to auscultation bilaterally no rales rhonchi or wheezes Cardio: Other: No S4; positive S1-S2; no S3 murmurs rubs or gallops Neuro: Other: Cranial nerves 2-12 grossly intact as tested. Motor is 5/5 all extremities sensation is intact Extrem: Other: No edema bilaterally DS: Data Data Completed and Pending Labs on day of discharge: Laboratory Results - last 24 hr 04/23/22 04/23/22 04/24/22 23:53 23:53 05:29 WBC 11.6 H RBC 4.04 L Hgb 13.0 L Hct 39.4 L MCV 97.5 MCH 32.2 MCHC 33.0 RDW 12.9 Plt Count 235 MPV 9.6 Immature Gran % (Auto) 0.4 Neut % (Auto) 72.9 Lymph % (Auto) 17.5 L [place] % (Auto) 8.4 Eos % (Auto) 0.3 Baso % (Auto) 0.5 Lymph # (Auto) 2.0 [place] # (Auto) 1.0 Eos # (Auto) 0.0 Baso # (Auto) 0.1 Abs Immat Gran (auto) 0.05 H Absolute Neuts (auto) 8.5 H Absolute Nucleated RBC 0.000 Nucleated RBC % (auto) 0.0 Sodium Potassium Chloride Carbon Dioxide Anion Gap BUN Creatinine Estim Creat Clear Calc Estimated GFR Random Glucose Calcium Troponin I High Sens 21.9 TSH 3.71 04/24/22 05:29 WBC RBC Hgb Hct MCV MCH MCHC RDW Plt Count MPV Immature Gran % (Auto) Neut % (Auto) Lymph % (Auto) [place] % (Auto) Eos % (Auto) Baso % (Auto) Lymph # (Auto) [place] # (Auto) Eos # (Auto) Baso # (Auto) Abs Immat Gran (auto) Absolute Neuts (auto) Absolute Nucleated RBC Nucleated RBC % (auto) Sodium 142 Potassium 4.1 Chloride 105 Carbon Dioxide 29 Anion Gap 12 BUN 17 H Creatinine 1.02 Estim Creat Clear Calc 44.6 Estimated GFR > 60 Random Glucose 101 Calcium 9.5 Troponin I High Sens TSH Discharge Plan Discharge Disposition: Xfer Psychiatric Hosp Referrals: Tanya Cantu MD [Primary Care Provider] - 1 Week Discharge Medications: Continued lithium carbonate 150 mg capsule 1 cap PO BID lamotrigine 25 mg tablet 1 tab PO DAILY levothyroxine 100 mcg tablet 1 tab PO DAILY@0630 memantine 5 mg tablet PO Discontinued Prolia 60 mg/mL syringe 60 mg subcut Discharge Orders: Discharge Order (Routine); Ordered 04/24/22 Ordered By: Blaine Deleon Diet: Advance to usual diet Activity on Discharge: As tolerated Forms: Patient Portal Discharge page Care Plan Goals: Transfer to [facility] psych Health Concerns: Address rescheduling of meds Plan of Treatment: As per [facility]
[2022-04-24 12:00] VITALS: BP 163/77; PULSE 58; RESP 18; TEMP 36.4; O2SAT 100
== END 2022-04-24 15:21 ==
PROVIDERS: Admitting Provider Student in an Organized Health Care Education/Training Program; PCP Family Medicine; Responsible Provider Hospitalist; Visit Provider Hospitalist
DX: I95.1 Orthostatic hypotension (principal); F31.9 Bipolar disorder, unspecified; F03.90 Unspecified dementia, unspecified severity, without behavioral disturbance, psychotic disturbance, mood disturbance, and anxiety; R07.89 Other chest pain; Z79.899 Other long term (current) drug therapy
CPT/HCPCS: 36415; 80048; 84443; 84484; 85025; 93005; 96361; 96372; 96374; 99221; J1650

== ENCOUNTER 2022-04-24 15:25 | Inpatient (IN) | payer MEDICARE, OTHER, SELFPAY ==
--- NOTE | ~2022-04-24 | MR_ITS ---
EXAMINATION: MR BRAIN WITHOUT CONTRAST CLINICAL INFORMATION: Dementia. Rule out frontotemporal dementia. Rule out Pick's disease. COMPARISON: None. TECHNIQUE: Multiplanar, multisequence imaging of the brain was performed without contrast. FINDINGS: No diffusion abnormalities are identified to suggest an acute or subacute infarct. No mass effect or midline shift is seen. There is moderate diffuse parenchymal volume loss with concordant ex vacuo dilatation of the ventricles. Mild chronic white matter microangiopathic changes noted. No extra-axial fluid collections are seen. The cerebellum is normal. 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 The craniovertebral junction, marrow signal, and midline structures are normal. The major intracranial flow voids at the level of the pala of [place] are preserved. The dural venous sinus flow voids are maintained. The mastoid air cells and paranasal sinuses are well aerated. Hypertrophic facet arthropathy visible in the upper cervical spine. MR/MR head/brain wo con IMPRESSION: Limited study with motion artifacts. No acute intracranial process. Moderate diffuse parenchymal volume loss and mild chronic white matter microangiopathy. 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
[2022-04-24 16:14] VITALS: BP 147/82; PULSE 67; RESP 15; TEMP 36.6; O2SAT 98
[2022-04-24 18:00] VITALS: BP 171/82; PULSE 87; RESP 20; TEMP 36.2
[2022-04-24] MEDS: Lithium Carbonate 300 MG TABLET 150 MG PO (21:55)
[2022-04-24] MEDS: hydrOXYzine HCL 25 MG TABLET PO (22:36)
[2022-04-24] MEDS: Melatonin 3 MG TABLET 6 MG PO (23:31)
[2022-04-25] MEDS: Levothyroxine Sodium 100 MCG TABLET PO (06:26)
[2022-04-25 08:10] VITALS: BP 117/72; PULSE 74; RESP 16; TEMP 36.6; O2SAT 99
[2022-04-25] MEDS: Lithium Carbonate 300 MG TABLET 150 MG PO ×2 (08:17→20:38)
[2022-04-25] MEDS: lamoTRIgine 25 MG TABLET PO (08:18)
[2022-04-25 08:35] VITALS: BMI 25.5
--- NOTE | 2022-04-25 15:01 | HO.PSYADMNOT ---
[facility] Date of Service: 04/25/22 Chief Complaint: bipolar Sources of Information: patient interviewed, chart reviewed and crisis/core team assessment reviewed Additional Sources of Information: Dr. 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 The patient carries a diagnosis of bipolar type 2 and dementia. According to his psychiatrist, the patient had being more impulsive, he has broken his cellphone and his mood has been more unstable. Also, his reported that in the last years, his attention span has been worse, his short-term memory worsen it and recently he has been seeing wandering in the community, confused at times.. Also in the middle of the night, he rearranges objects and he became verbally aggressive at times. According to his , she noticed a cognitive decline in the last 6 years but he has refused to go to the neurologist. The patient was initially brought to this unit but he had to be transferred over the weekend to the medical unit for IV fluids. After being medically cleared he was transferring to this facility for continuation of care. On interview, the patient was pleasant, cooperative but he has cognitive impairment was remarkable, he was unable to follow the full interview, his thought process was tangential at times and he was a very poor historian. The nursing staff reported that he was seeing with exit seeking behavior but easily redirectable. It was clear that the patient cannot take informed decisions on invoking his healthcare proxy. I called his who provided extra collateral information and she is aware that she has to sign the conditional voluntary. Past Psychiatric History: No prior psychiatric admissions as per his , he carries a diagnosis of bipolar type 2. His outpatient psychiatrist is Dr. Dann Hoff who was been following for years. According to the record, the patient takes a Lamictal 25 mg p.o. daily and lithium 150 mg p.o. b.i.d.. Medical Evaluation Reviewed: [facility] Medical History Bipolar 1 disorder Dementia Hypothyroidism Family History: According to the patient, his father was edgy , unable to remember if there are any family members with mental illness. Social History: According to the patient his youngest of 4 children, his milestones were achieved at expected age and he was raised by his parents. He graduated from high school and he went to college in medical school. He has been with his current for more than 40 years. 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 Substance History: Denies Trauma History: Denies Diagnostics Vital Signs (24Hr): Vital Signs - 24 hr 04/24/22 16:14 04/24/22 18:00 04/25/22 08:10 Temperature 97.8 F 97.2 F 97.8 F Pulse Rate 67 87 74 Respiratory Rate 15 20 16 Blood Pressure 147/82 H 171/82 H 117/72 Pulse Oximetry 98 99 Oxygen Delivery Method Room Air Room Air Room Air BMI result Body Mass Index 25.5 Meds/Allergies Meds Home Medications Medication Instructions Recorded Confirmed Type lamotrigine 25 mg tablet 25 mg PO DAILY 04/22/22 04/24/22 History levothyroxine 100 mcg tablet 100 mcg PO DAILY@0630 04/22/22 04/24/22 History lithium carbonate 150 mg capsule 150 mg PO BID 04/22/22 04/24/22 History denosumab 60 mg/mL subcutaneous 60 mg subcut [id number] 04/24/22 04/24/22 History syringe (Prolia) Allergies Allergies Allergy/AdvReac Type Severity Reaction Status Date / Time No Known Allergies Allergy Verified 04/22/22 21:44 Mental Status Exam Mental Status Exam Patient Appearance: Well Grooomed and Appropriate Patient Orientation: Person, Place and Situation Level of Consciousness: Awake Patient Behavior: Appropriate and Passive Mood Description: Calm Affect Description: Constricted Patient Cognition Impaired: Yes Ability to Follow Directions: Good Speech Pattern: Clear Hallucinations: None Delusions: Not Present Thought Process: Distracted, Evasive and Slowed Thinking Thought Content: positive for [place], positive for Loose Associations and positive for Thought Blocking Judgement: Poor Judgement and Insight: Poor judgment and insight Assessment & Plan Assessment & Plan (1) Dementia: Status: Acute Code(s): F03.90 - Unspecified dementia, unspecified severity, without behavioral disturbance, psychotic disturbance, mood disturbance, and anxiety (2) Bipolar disorder: Status: Acute Code(s): F31.9 - Bipolar disorder, unspecified Plan The patient is an elderly male with a prior history of bipolar disorder and a diagnosis of dementia that worsened in the last 6 years with disorganized behavior. The patient was brought back from the medical unit after being treated with IV fluids and his blood pressure has remained stable. Plan 1. Gather collateral information. 2. Keep lithium 150 mg p.o. b.i.d. and Lamictal 25 mg p.o. q.a.m.. 3. Invoke healthcare proxy since the patient does not have capacity to take informed decisions due to his advanced dementia. 4. Start Aricept 5 mg p.o. q.h.s. to target dementia. Patient educated on: diagnosis, medication risk/benefits and therapeutic strategies Informed Consent: does not understand Reason for continued inpatient stay Substantial Risk for: harm to self, inability to function, rapid decompensation and med/psych decompensation Statement Statement: I have reviewed the history and physical and performed a pertinent examination on my patient. No changes have occurred unless specified. If the History and Physical was not performed prior to admission, the Hospitalist's service will be consulted for completing the admission physical. Time Spent With Patient Time: Total time managing care of this patient today __20__ minutes.
[2022-04-25] MEDS: Donepezil HCl 5 MG TABLET PO (20:38)
[2022-04-25 20:50] VITALS: BP 160/66; PULSE 64; RESP 16; TEMP 36.9; O2SAT 100
[2022-04-26] MEDS: Levothyroxine Sodium 100 MCG TABLET PO (06:11)
[2022-04-26] MEDS: Lithium Carbonate 300 MG TABLET 150 MG PO ×2 (07:59→20:35)
[2022-04-26 08:00] VITALS: BP 168/62; PULSE 90; RESP 16; TEMP 36.3; O2SAT 96
[2022-04-26] MEDS: lamoTRIgine 25 MG TABLET PO (08:00)
--- NOTE | 2022-04-26 13:10 | P.PNPSI_ITS ---
Subjective Subjective Date of Service: 04/26/22 Reason For Visit: bipolar Subjective Notes: Conditional Voluntary (By healthcare proxy) Interim History: The nursing staff reported the patient was alert and oriented in the morning but in the evening around 18:00 he was confused he packed or his belongings and he wanted to leave. He was easily redirected back to his room. He slept well last night. Yesterday I called his and we discussed the case apparently he has cognitive impairment started 6 years ago really has been progressing. On interview the patient denies new symptoms he is pleasantly confused with no insight into his condition. The occupational therapy reported that he has court 11/30 on the [place] and tree 3.6 on the Alejandro test. Today we had a family meeting with his and explained the results. We will order an MRI head Mental Status Exam Mental Status Exam Patient Appearance: Well Grooomed Patient Orientation: Person Level of Consciousness: Awake and Appropriate Patient Behavior: Guarded and Cooperative Mood Description: Withdrawn Affect Description: Constricted Patient Cognition Impaired: Yes Ability to Follow Directions: Good Speech Pattern: Clear and Cofabulation Hallucinations: None Delusions: Not Present Thought Process: Distracted, Evasive and Confusion Thought Content: positive for [place], positive for [place] and positive for Poverty of Content Judgement: Poor Diagnostics Vital Signs (24Hr): Vital Signs - 24 hr 04/25/22 20:50 04/26/22 08:00 Temperature 98.4 F 97.4 F Pulse Rate 64 90 Respiratory Rate 16 16 Blood Pressure 160/66 H 168/62 H Pulse Oximetry 100 96 Oxygen Delivery Method Room Air Room Air BMI result Body Mass Index 25.5 Medications Medications Current Medications Acetaminophen (Acetaminophen 325 Mg Tablet) 650 mg PO Q6H PRN PRN Reason: Pain, Mild (Pain Scale 1-3) Al Hydroxide/Mg Hydroxide (Magnesium Hydrox/Alum Hydrox 30 Ml Oral.Susp) 30 ml PO Q6H PRN PRN Reason: Heartburn/Nausea Donepezil HCl (Donepezil Hcl 5 Mg Tablet) 5 mg PO BEDTIME JOHN Last Admin: 04/25/22 20:38 Dose: 5 mg Hydroxyzine HCl (Hydroxyzine Hcl 25 Mg Tablet) 25 mg PO Q6H PRN PRN Reason: Anxiety Last Admin: 04/24/22 22:36 Dose: 25 mg Lamotrigine (Lamotrigine 25 Mg Tablet) 25 mg PO DAILY [facility] Last Admin: 04/26/22 08:00 Dose: 25 mg Levothyroxine Sodium (Levothyroxine Sodium 100 Mcg Tablet) 100 mcg PO DAILY@0600 [facility] Last Admin: 04/26/22 06:11 Dose: 100 mcg [place] Carbonate ([place] Carbonate 300 Mg Tablet) 150 mg PO BID [facility] Last Admin: 04/26/22 07:59 Dose: 150 mg Magnesium Hydroxide (Milk Of Magnesia 30 Ml Oral.Susp) 30 ml PO DAILY PRN PRN Reason: Constipation Melatonin (Melatonin 3 Mg Tablet) 6 mg PO BEDTIME PRN PRN Reason: Insomnia Last Admin: 04/24/22 23:31 Dose: 6 mg Allergies Allergies Allergy/AdvReac Type Severity Reaction Status Date / Time No Known Allergies Allergy Verified 04/22/22 21:44 Assessment & Plan Assessment & Plan (1) Dementia: Status: Acute Code(s): F03.90 - Unspecified dementia, unspecified severity, without behavioral disturbance, psychotic disturbance, mood disturbance, and anxiety (2) Bipolar disorder: Status: Acute Code(s): F31.9 - Bipolar disorder, unspecified Plan The patient is an elderly male with a prior history of bipolar disor chester and a diagnosis of dementia that worsened in the last 6 years with disorganized behavior. The patient was brought back from the medical unit after being treated with IV fluids and his blood pressure has remained stable. Plan 1. Gather collateral information. 2. Keep lithium 150 mg p.o. b.i.d. and Lamictal 25 mg p.o. q.a.m.. 3. Invoke healthcare proxy since the patient does not have capacity to take informed decisions due to his advanced dementia. 4. Start Aricept 5 mg p.o. q.h.s. to target dementia on April 26. 5. Healthcare is informed that his dementia is very advanced and most likely Aricept with not work well will give him that therapeutic trial. 6. MRI head without contrast Reason for contiued inpatient stay Substantial Risk for: inability to function, rapid decompensation and med/psych decompensation Time Spent With Patient Time: Total time managing care of this patient today _20___ minutes.
[2022-04-26 18:00] VITALS: BP 156/77; PULSE 66; RESP 16; TEMP 36.3; O2SAT 99
[2022-04-26] MEDS: hydrOXYzine HCL 25 MG TABLET PO (20:39)
[2022-04-27] MEDS: Levothyroxine Sodium 100 MCG TABLET PO (06:42)
[2022-04-27 09:11] VITALS: BP 160/80; PULSE 80; RESP 16; TEMP 36.5; O2SAT 97
[2022-04-27] MEDS: Lithium Carbonate 300 MG TABLET 150 MG PO ×2 (09:11→20:12)
[2022-04-27] MEDS: Memantine HCl 5 MG TABLET PO (09:12)
[2022-04-27] MEDS: lamoTRIgine 25 MG TABLET PO (09:12)
--- NOTE | 2022-04-27 12:49 | P.PNPSI_ITS ---
Subjective Subjective Date of Service: 04/27/22 Reason For Visit: bipolar Subjective Notes: Conditional Voluntary (By healthcare proxy) Healthcare Proxy: Yes Interim History: The nursing staff reported the patient slept well. Yesterday we had a meeting with his and explained that his [place] was very low, much lower than expected 11/30 and he has a Alejandro cognitive test history 0.6. Yesterday I contact his psychiatrist Dr. Hoff and informed about the findings. We will continue with the workout and we will have a MRI today. Since the patient has a very advanced dementia we discontinue Aricept and start Namenda 5 mg p.o. b.i.d.. Today on interview the patient denies new symptoms denies any side effects with Namenda that was started yesterday. The MRI came back normal no changes or patognomonic symptoms of frontotemporal dementia or picks disease. Mental Status Exam Mental Status Exam Patient Appearance: Well Grooomed and Appropriate Patient Orientation: Person and Situation Level of Consciousness: Awake, Disoriented and Restless Patient Behavior: Passive and Restless Mood Description: Constricted Affect Description: Constricted Patient Cognition Impaired: Yes Ability to Follow Directions: Good Speech Pattern: Clear and Rambling Hallucinations: None Delusions: Not Present Thought Process: Slowed Thinking Thought Content: positive for [place] Judgement: Fair Diagnostics Vital Signs (24Hr): Vital Signs - 24 hr 04/26/22 18:00 04/27/22 09:11 Temperature 97.3 F 97.7 F Pulse Rate 66 80 Respiratory Rate 16 16 Blood Pressure 156/77 H 160/80 H Pulse Oximetry 99 97 Oxygen Delivery Method Room Air Room Air BMI result Body Mass Index 25.5 Medications Medications Current Medications Acetaminophen (Acetaminophen 325 Mg Tablet) 650 mg PO Q6H PRN PRN Reason: Pain, Mild (Pain Scale 1-3) Al Hydroxide/Mg Hydroxide (Magnesium Hydrox/Alum Hydrox 30 Ml Oral.Susp) 30 ml PO Q6H PRN PRN Reason: Heartburn/Nausea Hydroxyzine HCl (Hydroxyzine Hcl 25 Mg Tablet) 25 mg PO Q6H PRN PRN Reason: Anxiety Last Admin: 04/26/22 20:39 Dose: 25 mg Lamotrigine (Lamotrigine 25 Mg Tablet) 25 mg PO DAILY JOHN Last Admin: 04/27/22 09:12 Dose: 25 mg Levothyroxine Sodium (Levothyroxine Sodium 100 Mcg Tablet) 100 mcg PO DAILY @0600 [facility] Last Admin: 04/27/22 06:42 Dose: 100 mcg [place] Carbonate ([place] Carbonate 300 Mg Tablet) 150 mg PO BID [facility] Last Admin: 04/27/22 09:11 Dose: 150 mg Magnesium Hydroxide (Milk Of Magnesia 30 Ml Oral.Susp) 30 ml PO DAILY PRN PRN Reason: Constipation Melatonin (Melatonin 3 Mg Tablet) 6 mg PO BEDTIME PRN PRN Reason: Insomnia Last Admin: 04/24/22 23:31 Dose: 6 mg Memantine (Memantine Hcl 5 Mg Tablet) 5 mg PO DAILY [facility] Last Admin: 04/27/22 09:12 Dose: 5 mg Allergies Allergies Allergy/AdvReac Type Severity Reaction Status Date / Time No Known Allergies Allergy Verified 04/22/22 21:44 Assessment & Plan Assessment & Plan (1) Dementia: Status: Acute Code(s): F03.90 - Unspecified dementia, unspecified severity, without behavioral disturbance, psychotic disturbance, mood disturbance, and anxiety (2) Bipolar disorder: Status: Acute Code(s): F31.9 - Bipolar disorder, unspecified Plan The patient is an elderly male with a prior history of bipolar disorder and a diagnosis of dementia that worsened in the last 6 years with disorganized behavior. The patient was brought back from the medical unit after being treated with IV fluids and his blood pressure has remained stable. Plan 1. Gather collateral information. 2. Keep lithium 150 mg p.o. b.i.d. and Lamictal 25 mg p.o. q.a.m.. 3. Invoke healthcare proxy since the patient does not have capacity to take inf ormed decisions due to his advanced dementia. 4. Start Aricept 5 mg p.o. q.h.s. to target dementia on April 26. Later it was discharged the next day 5. Healthcare is informed that his dementia is very advanced and most likely Aricept with not work well will give him that therapeutic trial. 6. MRI head without contrast 7. Namenda 5 mg p.o. b.i.d. Reason for contiued inpatient stay Substantial Risk for: inability to function, rapid decompensation and med/psych decompensation Time Spent With Patient Time: Total time managing care of this patient today _20___ minutes.
[2022-04-27 18:00] VITALS: BP 154/80; PULSE 62; RESP 18; TEMP 36.8; O2SAT 98
[2022-04-27] MEDS: hydrOXYzine HCL 25 MG TABLET PO (20:12)
[2022-04-27] MEDS: Melatonin 3 MG TABLET 6 MG PO (20:13)
[2022-04-28] MEDS: Levothyroxine Sodium 100 MCG TABLET PO (05:55)
[2022-04-28 06:00] VITALS: BP 161/76; PULSE 58; RESP 14; TEMP 36.4; O2SAT 98
[2022-04-28] MEDS: lamoTRIgine 25 MG TABLET PO (10:36)
[2022-04-28] MEDS: Memantine HCl 10 MG TABLET PO (10:36)
[2022-04-28] MEDS: Lithium Carbonate 300 MG TABLET 150 MG PO ×2 (10:36→21:33)
--- NOTE | 2022-04-28 13:35 | P.PNPSI_ITS ---
Subjective Subjective Date of Service: 04/28/22 Reason For Visit: bipolar Interim History: The nursing staff reported the patient had been fully compliant with treatment, stands he is confused but easily redirectable. The occupational therapy reported that he has a fall where he is anxious about the MRI. I explained about the results and he was calmer. On interview the patient denies new symptoms he states that he does not have side effects with increase of Namenda. Mental Status Exam Mental Status Exam Patient Appearance: Well Grooomed and Appropriate Patient Orientation: Person, Place and Situation Level of Consciousness: Awake and Appropriate Patient Behavior: Appropriate and Cooperative Mood Description: Calm and Withdrawn Affect Description: Constricted Patient Cognition Impaired: Yes Ability to Follow Directions: Good Speech Pattern: Clear Hallucinations: None Delusions: Not Present Thought Process: Linear Thought Content: positive for [place] and positive for Poverty of Content Judgement: Fair Diagnostics Vital Signs (24Hr): Vital Signs - 24 hr 04/27/22 18:00 04/28/22 06:00 Temperature 98.2 F 97.5 F Pulse Rate 62 58 Respiratory Rate 18 14 Blood Pressure 154/80 H 161/76 H Pulse Oximetry 98 98 Oxygen Delivery Method Room Air Room Air BMI result Body Mass Index 25.5 Imaging Radiology Impressions: ITS Impressions Brain MRI 04/27/22 12:22 IMPRESSION: Limited study with motion artifacts. No acute intracranial process. Moderate diffuse parenchymal volume loss and mild chronic white matter microangiopathy. 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 Medications Medications Current Medications Acetaminophen (Acetaminophen 325 Mg Tablet) 650 mg PO Q6H PRN PRN Reason: Pain, Mild (Pain Scale 1-3) Al Hydroxide/Mg Hydroxide (Magnesium Hydrox/Alum Hydrox 30 Ml Oral.Susp) 30 ml PO Q6H PRN PRN Reason: Heartburn/Nausea Hydroxyzine HCl (Hydroxyzine Hcl 25 Mg Tablet) 25 mg PO Q6H PRN PRN Reason: Anxiety Last Admin: 04/27/22 20:12 Dose: 25 mg Lamotrigine (Lamotrigine 25 Mg Tablet) 25 mg PO DAILY [facility] Last Admin: 04/28/22 10:36 Dose: 25 mg Levothyroxine Sodium (Levothyroxine Sodium 100 Mcg Tablet) 100 mcg PO DAILY@0600 [facility] Last Admin: 04/28/22 05:55 Dose: 100 mcg [place] Carbonate ([place] Carbonate 300 Mg Tablet) 150 mg PO BID [facility] Last Admin: 04/28/22 10:36 Dose: 150 mg Magnesium Hydroxide (Milk Of Magnesia 30 Ml Oral.Susp) 30 ml PO DAILY PRN PRN Reason: Constipation Melatonin (Melatonin 3 Mg Tablet) 6 mg PO BEDTIME PRN PRN Reason: Insomnia Last Admin: 04/27/22 20:13 Dose: 6 mg Memantine (Memantine Hcl 10 Mg Tablet) 10 mg PO DAILY [facility] Last Admin: 04/28/22 10:36 Dose: 10 mg Allergies Allergies Allergy/AdvReac Type Severity Reaction Status Date / Time No Known Allergies Allergy Verified 04/22/22 21:44 Assessment & Plan Assessment & Plan (1) Dementia: Status: Acute Code(s): F03.90 - Unspecified dementia, unspecified severity, without behavioral disturbance, psychotic disturbance, mood disturbance, and anxiety (2) Bipolar disorder: Status: Acute Code(s): F31.9 - Bipolar disorder, unspecified Plan The patient is an elderly [place] male with a prior history of bipolar disorder and a diagnosis of dementia that worsened in the last 6 years with disorganized behavior. The patient was brought back from the medical unit after being treated with IV fluids and his blood pressure has remained stable. Plan 1. Gather collateral information. 2. Keep lithium 150 mg p.o. b.i.d. and Lamictal 25 mg p.o. q.a.m.. 3. Invoke healthcare proxy since the patient does not have capacity to take informed decisions due to his advanced dementia. 4. Start Aricept 5 mg p.o. q.h.s. to target dementia on April 26. Later it was discharged the next day 5. Healthcare is informed that his dementia is very advanced and most likely Aricept with not work well will give him that therapeutic trial. 6. MRI head without contrast. The results came back without clear symptoms frontotemporal dementia or Pick's disease. 7. Namenda 5 mg p.o. b.i.d. later increased up to 10 mg p.o. b.i.d. on April 27 Reason for contiued inpatient stay Substantial Risk for: inability to function, rapid decompensation and med/psych decompensation Time Spent With Patient Time: Total time managing care of this patient today __20__ minutes.
[2022-04-28] MEDS: Melatonin 3 MG TABLET 6 MG PO (21:33)
[2022-04-28 22:01] VITALS: BP 159/79; PULSE 61; RESP 18; TEMP 36.8; O2SAT 97
[2022-04-29] MEDS: Levothyroxine Sodium 100 MCG TABLET PO (06:20)
[2022-04-29 07:50] VITALS: BP 140/73; PULSE 76; RESP 16; TEMP 36.6; O2SAT 97
[2022-04-29] MEDS: lamoTRIgine 25 MG TABLET PO (07:53)
[2022-04-29] MEDS: Memantine HCl 10 MG TABLET PO (07:53)
[2022-04-29] MEDS: Lithium Carbonate 300 MG TABLET 150 MG PO ×2 (07:54→19:56)
--- NOTE | 2022-04-29 12:21 | P.PNPSI_ITS ---
Subjective Subjective Date of Service: 04/29/22 Reason For Visit: bipolar Subjective Notes: Conditional Voluntary Interim History: The nursing staff reported the patient slept well last night he is oriented during the day but it seems that there is a decline on the evening. On interview the patient denies side effects with the med that it was titrated up to 10 mg p.o. b.i.d.. I called his and explained that he is doing fairly well he is tolerating the medication and I discussed the results of the MRI. We will be planning on early discharge next Monday. Mental Status Exam Mental Status Exam Patient Appearance: Well Grooomed and Appropriate Patient Orientation: Person and Situation Level of Consciousness: Awake and Appropriate Patient Behavior: Cooperative Mood Description: Calm Affect Description: Withdrawn and Constricted Patient Cognition Impaired: Yes Ability to Follow Directions: Good Speech Pattern: Clear Hallucinations: None Delusions: Not Present Thought Process: Distracted, Linear and Slowed Thinking Thought Content: positive for [place], positive for Circumstantial and positive for Poverty of Content Judgement: Fair Diagnostics Vital Signs (24Hr): Vital Signs - 24 hr 04/28/22 22:01 04/29/22 07:50 Temperature 98.2 F 97.9 F Pulse Rate 61 76 Respiratory Rate 18 16 Blood Pressure 159/79 H 140/73 H Pulse Oximetry 97 97 Oxygen Delivery Method Room Air Room Air BMI result Body Mass Index 25.5 Imaging Radiology Impressions: ITS Impressions Brain MRI 04/27/22 12:22 IMPRESSION: Limited study with motion artifacts. No acute intracranial process. Moderate diffuse parenchymal volume loss and mild chronic white matter microangiopathy. 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 Medications Medications Current Medications Acetaminophen (Acetaminophen 325 Mg Tablet) 650 mg PO Q6H PRN PRN Reason: Pain, Mild (Pain Scale 1-3) Al Hydroxide/Mg Hydroxide (Magnesium Hydrox/Alum Hydrox 30 Ml Oral.Susp) 30 ml PO Q6H PRN PRN Reason: Heartburn/Nausea Hydroxyzine HCl (Hydroxyzine Hcl 25 Mg Tablet) 25 mg PO Q6H PRN PRN Reason: Anxiety Last Admin: 04/27/22 20:12 Dose: 25 mg Lamotrigine (Lamotrigine 25 Mg Tablet) 25 mg PO DAILY JOHN Last Admin: 04/29/22 07:53 Dose: 25 mg Levothyroxine Sodium (Levothyroxine Sodium 100 Mcg Tablet) 100 mcg PO DAILY@0600 [facility] Last Admin: 04/29/22 06:20 Dose: 100 mcg [place] Carbonate ([place] Carbonate 300 Mg Tablet) 150 mg PO BID [facility] Last Admin: 04/29/22 07:54 Dose: 150 mg Magnesium Hydroxide (Milk Of Magnesia 30 Ml Oral.Susp) 30 ml PO DAILY PRN PRN Reason: Constipation Melatonin (Melatonin 3 Mg Tablet) 6 mg PO BEDTIME PRN PRN Reason: Insomnia Last Admin: 04/28/22 21:33 Dose: 6 mg Memantine (Memantine Hcl 10 Mg Tablet) 10 mg PO DAILY [facility] Last Admin: 04/29/22 07:53 Dose: 10 mg Allergies Allergies Allergy/AdvReac Type Severity Reaction Status Date / Time No Known Allergies Allergy Verified 04/22/22 21:44 Assessment & Plan Assessment & Plan (1) Dementia: Status: Acute Code(s): F03.90 - Unspecified dementia, unspecified severity, without behavioral disturbance, psychotic disturbance, mood disturbance, and anxiety (2) Bipolar disorder: Status: Acute Code(s): F31.9 - Bipolar disorder, unspecified Plan The patient is an elderly [place] male with a prior history of bipolar disorder and a diagnosis of dementia that worsened in the last 6 years with disorganized behavior. The patient was brought back from the medical unit after being treated with IV fluids and his blood pressure has remained stable. Plan 1. Gather collateral information. 2. Keep lithium 150 mg p.o. b.i.d. and Lamictal 25 mg p.o. q.a.m.. 3. Invoke healthcare proxy since the patient does not have capacity to take informed decisions due to his advanced dementia. 4. Start Aricept 5 mg p.o. q.h.s. to target dementia on April 26. Later it was discharged the next day 5. Healthcare proxy is informed that his dementia is very advanced and most likely Aricept with not work well will give him that therapeutic trial. 6. MRI head without contrast. The results came back without clear symptoms frontotemporal dementia or Pick's disease. 7. Namenda 5 mg p.o. b.i.d. later increased up to 10 mg p.o. b.i.d. on April 27. So far no side effects. 8. Possible discharge for Monday Reason for contiued inpatient stay Substantial Risk for: inability to function, rapid decompensation and med/psych decompensation Time Spent With Patient Time: Total time managing care of this patient today __20__ minutes.
[2022-04-29 18:00] VITALS: BP 145/70; PULSE 79; RESP 18; TEMP 36.4; O2SAT 97
[2022-04-29] MEDS: Melatonin 3 MG TABLET 6 MG PO (19:55)
[2022-04-29] MEDS: hydrOXYzine HCL 25 MG TABLET PO (19:56)
[2022-04-30 06:00] VITALS: BP 131/70; PULSE 64; RESP 18; TEMP 36.8; O2SAT 92
--- NOTE | 2022-04-30 08:57 | HO.PSYCHPN ---
Subjective Subjective Date of Service: 04/30/22 Reason For Visit: bipolar Subjective Notes: Conditional Voluntary Interim History: The nursing staff reported the patient had been fully compliant with treatment, pleasant cooperative no issues. On interview the patient is pleasantly confused easily redirectable. He denies side effects with Namenda 10 mg p.o. b.i.d. on involuntary movements. Mental Status Exam Mental Status Exam Patient Appearance: Well Grooomed and Appropriate Patient Orientation: Person, Place and Situation Level of Consciousness: Awake and Appropriate Patient Behavior: Appropriate and Guarded Mood Description: Calm Affect Description: Constricted Patient Cognition Impaired: Yes Ability to Follow Directions: Good Speech Pattern: Clear Hallucinations: None Delusions: Not Present Thought Process: Distracted, Linear and Slowed Thinking Thought Content: positive for [place] and positive for Circumstantial Judgement: Fair Diagnostics Vital Signs (24Hr): Vital Signs - 24 hr 04/29/22 18:00 Temperature 97.6 F Pulse Rate 79 Respiratory Rate 18 Blood Pressure 145/70 H Pulse Oximetry 97 Oxygen Delivery Method Room Air BMI result Body Mass Index 25.5 Imaging Radiology Impressions: ITS Impressions Brain MRI 04/27/22 12:22 IMPRESSION: Limited study with motion artifacts. No acute intracranial process. Moderate diffuse parenchymal volume loss and mild chronic white matter microangiopathy. 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 Medications Medications Current Medications Acetaminophen (Acetaminophen 325 Mg Tablet) 650 mg PO Q6H PRN PRN Reason: Pain, Mild (Pain Scale 1-3) Al Hydroxide/Mg Hydroxide (Magnesium Hydrox/Alum Hydrox 30 Ml Oral.Susp) 30 ml PO Q6H PRN PRN Reason: Heartburn/Nausea Hydroxyzine HCl (Hydroxyzine Hcl 25 Mg Tablet) 25 mg PO Q6H PRN PRN Reason: Anxiety Last Admin: 04/29/22 19:56 Dose: 25 mg Lamotrigine (Lamotrigine 25 Mg Tablet) 25 mg PO DAILY [facility] Last Admin: 04/29/22 07:53 Dose: 25 mg Levothyroxine Sodium (Levothyroxine Sodium 100 Mcg Tablet) 100 mcg PO DAILY@0600 [facility] Last Admin: 04/29/22 06:20 Dose: 100 mcg [place] Carbonate ([place] Carbonate 300 Mg Tablet) 150 mg PO BID [facility] Last Admin: 04/29/22 19:56 Dose: 150 mg Magnesium Hydroxide (Milk Of Magnesia 30 Ml Oral.Susp) 30 ml PO DAILY PRN PRN Reason: Constipation Melatonin (Melatonin 3 Mg Tablet) 6 mg PO BEDTIME PRN PRN Reason: Insomnia Last Admin: 04/29/22 19:55 Dose: 6 mg Memantine (Memantine Hcl 10 Mg Tablet) 10 mg PO DAILY [facility] Last Admin: 04/29/22 07:53 Dose: 10 mg Allergies Allergies Allergy/AdvReac Type Severity Reaction Status Date / Time No Known Allergies Allergy Verified 04/22/22 21:44 Assessment & Plan Assessment & Plan (1) Dementia: Status: Acute Code(s): F03.90 - Unspecified dementia, unspecified severity, without behavioral disturbance, psychotic disturbance, mood disturbance, and anxiety (2) Bipolar disorder: Status: Acute Code(s): F31.9 - Bipolar disorder, unspecified Plan The patient is an elderly [place] male with a prior history of bipolar disorder and a diagnosis of dementia that worsened in the last 6 years with disorganized behavior. The patient was brought back from the medical unit after being treated with IV fluids and his blood pressure has remained stable. Plan 1. Gather collateral information. 2. Keep lithium 150 mg p.o. b.i.d. and Lamictal 25 mg p.o. q.a.m.. 3. Invoke healthcare proxy since the patient does not have capacity to take informed decisions due to his advanced dementia. 4. Start Aricept 5 mg p.o. q.h.s. to target dementia on April 26. Later it was discharged the next day 5. Healthcare proxy is informed that his dementia is very advanced and most likely Aricept with not work well will give him that therapeutic trial. 6. MRI head without contrast. The results came back without clear symptoms frontotemporal dementia or Pick's disease. 7. Namenda 5 mg p.o. b.i.d. later increased up to 10 mg p.o. b.i.d. on April 27. So far no side effects. 8. Possible discharge for Monday Reason for contiued inpatient stay Substantial Risk for: inability to function, rapid decompensation and med/psych decompensation Time Spent With Patient Time: Total time managing care of this patient today __20__ minutes.
[2022-04-30] MEDS: Lithium Carbonate 300 MG TABLET 150 MG PO ×2 (09:00→20:21)
[2022-04-30] MEDS: Levothyroxine Sodium 100 MCG TABLET PO (09:00)
[2022-04-30] MEDS: lamoTRIgine 25 MG TABLET PO (09:01)
[2022-04-30] MEDS: Memantine HCl 10 MG TABLET PO (09:01)
[2022-04-30 18:00] VITALS: BP 166/78; PULSE 56; RESP 16; TEMP 36.1; O2SAT 100
[2022-04-30] MEDS: Melatonin 3 MG TABLET 6 MG PO (20:23)
[2022-05-01] MEDS: Levothyroxine Sodium 100 MCG TABLET PO (06:28)
[2022-05-01 07:30] VITALS: BP 148/83; PULSE 71; RESP 15; TEMP 36.3; O2SAT 99
[2022-05-01] MEDS: Memantine HCl 10 MG TABLET PO (09:00)
[2022-05-01] MEDS: lamoTRIgine 25 MG TABLET PO (09:00)
[2022-05-01] MEDS: Lithium Carbonate 300 MG TABLET 150 MG PO ×2 (09:00→21:19)
--- NOTE | 2022-05-01 09:44 | P.PNPSI_ITS ---
Subjective Subjective Date of Service: 05/01/22 Reason For Visit: bipolar Subjective Notes: Conditional Voluntary (By healthcare proxy) Healthcare Proxy: Yes Interim History: The nursing staff reported the patient had been fully compliant with treatment, he has been socially he slept well all last night. On interview the patient denies new symptoms, he is tolerating very well Namenda no side effects, he is confused but easily redirectable no evidence of agitation. Mental Status Exam Mental Status Exam Patient Appearance: Well Grooomed and Appropriate Patient Orientation: Person and Situation Level of Consciousness: Awake and Appropriate Patient Behavior: Cooperative Mood Description: Constricted Affect Description: Calm Patient Cognition Impaired: Yes Ability to Follow Directions: Good Speech Pattern: Clear Hallucinations: None Delusions: Not Present Thought Process: Distracted and Slowed Thinking Thought Content: positive for [place], positive for Circumstantial and positive for Poverty of Content Judgement: Fair Diagnostics Vital Signs (24Hr): Vital Signs - 24 hr 04/30/22 18:00 Temperature 97 F Pulse Rate 56 Respiratory Rate 16 Blood Pressure 166/78 H Pulse Oximetry 100 Oxygen Delivery Method Room Air BMI result Body Mass Index 25.5 Imaging Radiology Impressions: ITS Impressions Brain MRI 04/27/22 12:22 IMPRESSION: Limited study with motion artifacts. No acute intracranial process. Moderate diffuse parenchymal volume loss and mild chronic white matter microangiopathy. 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 Medications Medications Current Medications Acetaminophen (Acetaminophen 325 Mg Tablet) 650 mg PO Q6H PRN PRN Reason: Pain, Mild (Pain Scale 1-3) Al Hydroxide/Mg Hydroxide (Magnesium Hydrox/Alum Hydrox 30 Ml Oral.Susp) 30 ml PO Q6H PRN PRN Reason: Heartburn/Nausea Hydroxyzine HCl (Hydroxyzine Hcl 25 Mg Tablet) 25 mg PO Q6H PRN PRN Reason: Anxiety Last Admin: 04/29/22 19:56 Dose: 25 mg Lamotrigine (Lamotrigine 25 Mg Tablet) 25 mg PO DAILY [facility] Last Admin: 05/01/22 09:00 Dose: 25 mg Levothyroxine Sodium (Levothyroxine Sodium 100 Mcg Tablet) 100 mcg PO DAILY@0600 [facility] Last Admin: 05/01/22 06:28 Dose: 100 mcg [place] Carbonate ([place] Carbonate 300 Mg Tablet) 150 mg PO BID [facility] Last Admin: 05/01/22 09:00 Dose: 150 mg Magnesium Hydroxide (Milk Of Magnesia 30 Ml Oral.Susp) 30 ml PO DAILY PRN PRN Reason: Constipation Melatonin (Melatonin 3 Mg Tablet) 6 mg PO BEDTIME PRN PRN Reason: Insomnia Last Admin: 04/30/22 20:23 Dose: 6 mg Memantine (Memantine Hcl 10 Mg Tablet) 10 mg PO DAILY [facility] Last Admin: 05/01/22 09:00 Dose: 10 mg Allergies Allergies Allergy/AdvReac Type Severity Reaction Status Date / Time No Known Allergies Allergy Verified 04/22/22 21:44 Assessment & Plan Assessment & Plan (1) Dementia: Status: Acute Code(s): F03.90 - Unspecified dementia, unspecified severity, without behavioral disturbance, psychotic disturbance, mood disturbance, and anxiety (2) Bipolar disorder: Status: Acute Code(s): F31.9 - Bipolar disorder, unspecified Plan The patient is an elderly [place] male with a prior history of bipolar disorder and a diagnosis of dementia that worsened in the last 6 years with disorganized behavior. The patient was brought back from the medical unit after being treated with IV fluids and his blood pressure has remained stable. Plan 1. Gather collateral information. 2. Keep lithium 150 mg p.o. b.i.d. and Lamictal 25 mg p.o. q.a.m.. 3. Invoke healthcare proxy since the patient does not have capacity to take informed decisions due to his advanced dementia. 4. Start Aricept 5 mg p.o. q.h.s. to target dementia on April 26. Later it was discharged the next day 5. Healthcare proxy is informed that his dementia is very advanced and most likely Aricept with not work well will give him that therapeutic trial. 6. MRI head without contrast. The results came back without clear symptoms frontotemporal dementia or Pick's disease. 7. Namenda 5 mg p.o. b.i.d. later increased up to 10 mg p.o. b.i.d. on April 27. So far no side effects. 8. Possible discharge for Monday Reason for contiued inpatient stay Substantial Risk for: inability to function, rapid decompensation and med/psych decompensation Time Spent With Patient Time: Total time managing care of this patient today __20__ minutes.
[2022-05-01 18:00] VITALS: BP 144/75; PULSE 101; TEMP 36.2; O2SAT 100
[2022-05-01] MEDS: Melatonin 3 MG TABLET 6 MG PO (21:20)
[2022-05-02 06:00] VITALS: BP 131/74; PULSE 61; RESP 16; TEMP 36.7; O2SAT 97
[2022-05-02] MEDS: Levothyroxine Sodium 100 MCG TABLET PO (06:17)
--- NOTE | 2022-05-02 06:53 | P.DS_ITS ---
DS: Providers Provider Date of Service: 05/02/22 Date of admission: 04/24/22 15:25 Date of discharge: 05/02/22 Primary care physician: Tanya Cantu MD Attending physician on admission: Aubrey Bowman Attending physician on discharge: Aubrey Bowman DS: Diagnosis Discharge Diagnosis (1) Dementia: Status: Acute (2) Bipolar disorder: Status: Acute DS: Medications Discharge Medications Home Medications: Home Medications Medication Instructions Recorded Confirmed lamotrigine 25 mg tablet 25 mg PO DAILY 04/22/22 04/24/22 levothyroxine 100 mcg tablet 100 mcg PO DAILY@0630 04/22/22 04/24/22 lithium carbonate 150 mg capsule 150 mg PO BID 04/22/22 04/24/22 denosumab 60 mg/mL subcutaneous 60 mg subcut [id number] 04/24/22 04/24/22 syringe (Prolia) Mental Status Exam Mental Status Exam Patient Appearance: Well Grooomed and Appropriate Patient Orientation: Person, Place and Situation Level of Consciousness: Awake and Appropriate Patient Behavior: Guarded and Passive Mood Description: Appropriate Affect Description: Calm and Constricted Patient Cognition Impaired: Yes Ability to Follow Directions: Good Speech Pattern: Clear, Difficulty Finding Words, Soft-Spoken and Long Pauses Hallucinations: None Delusions: Not Present Thought Process: Distracted, Evasive and Slowed Thinking Thought Content: positive for [place], positive for Circumstantial and positive for Poverty of Content Judgement: Poor Data Imaging Diagnostic Imaging Impressions Brain MRI 04/27/22 12:22 IMPRESSION: Limited study with motion artifacts. No acute intracranial process. Moderate diffuse parenchymal volume loss and mild chronic white matter microangiopathy. 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 DS: Summary Hospital Course Hospital Course: The patient was brought to the emergency room since his psychiatrist reported that he had been more confused, with episodic anger that has destroyed cell phones, and agitation. Please see the HPI for further details. His outpatient psychiatrist, Dr. Hoff, reported that he carries the diagnosis of bipolar type 2 and he has been fairly stable on lithium and Lamictal but recently he had changes in his mental status with poor short-term memory, wondering and episodes of anger. 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 On admission, the patient was slightly confused and agitated the 1st day. 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 We started the medical workout and on admission, he was that he was dehydrated so he needed to be rushed to the medical unit for IV fluids. He was brought back in less than 24 hours and he is mental status improved remarkably. There was no evidence of chronic renal disease or hypothyroidism due to the chronic use of lithium. We also did an MRI and apparently there was no lesions in the frontal temporal region or there was no evidence of Pick's disease, it looks more Alzheimer's dementia. We start doing our medical workout and occupational therapist did a [place] and he is scored 8/30 and his Alejandro test was on the lower threes. It was evident that the patient had been deteriorating for several years but since the patient have several skills and tools, he was able to cope with this deficit. Initially we started the Aricept but due to the advanced dementia we changed to Namenda that it was titrated slowly up to 10 mg p.o. daily with no side effects. We had several family meetings and we discussed risks, benefits, side-effects and alternatives and other treatment options. The patient has a lot of supports at home. Since there were no safety concerns discharge planning was discussed. Time spent discussing smoking cessation with patient: 3 to 10 minutes Status at Discharge Functional status at discharge: independent ambulation Overall status at discharge: patient is back to baseline Time Spent with Patient Time attestation: Total time managing care of this patient today __30__ minutes. Time spent: Less than 30 minutes Discharge Plan Discharge Anticipated Discharge Date/Time: 05/02/22 11:03 Patient Disposition: Home, Self-Care Discharge Diagnosis: Bipolar type 2. Dementia Delirium resolved Referrals: Tanya Cantu MD [Primary Care Provider] - 1 Week Discharge Medications: New memantine [Namenda] 10 mg Tablet 10 mg PO DAILY 30 Days Qty: 30 0RF melatonin 3 mg Tablet 6 mg PO BEDTIME PRN (Reason: Insomnia) 30 Days Qty: 60 0RF Continued levothyroxine 100 mcg tablet 100 mcg PO DAILY@0630 lithium carbonate 150 mg capsule 150 mg PO BID 30 Days Qty: 60 0RF lamotrigine 25 mg tablet 25 mg PO DAILY 30 Days Qty: 30 0RF Prolia 60 mg/mL syringe 60 mg subcut [id number] Rx Instructions: LAST DOSE WAS ROUGHLY 04/12/22 PER PATIENT AND SPOUSE Discharge Orders: Discharge Order (Routine); Ordered 05/02/22 Ordered By: Aubrey Bowman Diet: Advance to usual diet Activity on Discharge: As tolerated Stand Alone Forms: Patient Portal Discharge page Care Plan Goals: Care plan goals achieved in this admission Health Concerns: Continue treatment with primary care physician Plan of Treatment: Continue medication management with his outpatient psychiatrist Dr. Hoff. We explained to his that eventually he will need more services due to his cognitive impairment Assessment: Elderly male with a prior history of bipolar type 2 who had been fairly stable and dementia with behavioral disturbances that worsened due to the hip irritation that required IV fluids. While he was admitted it was clear that the patient has very advanced dementia. At this moment safe to be in the community with outpatient providers
[2022-05-02] MEDS: Lithium Carbonate 300 MG TABLET 150 MG PO (08:26)
[2022-05-02] MEDS: Memantine HCl 10 MG TABLET PO (08:26)
[2022-05-02] MEDS: lamoTRIgine 25 MG TABLET PO (08:26)
== END 2022-05-02 14:35 | disposition home or self-care (01) | DRG 885 ==
PROVIDERS: Admitting Provider Hospitalist; PCP Family Medicine; Visit Provider Psychiatry & Neurology Psychiatry
DX: F31.81 Bipolar II disorder (principal); F03.918 Unspecified dementia, unspecified severity, with other behavioral disturbance; E03.9 Hypothyroidism, unspecified; Z87.891 Personal history of nicotine dependence; Z79.890 Hormone replacement therapy; Z79.899 Other long term (current) drug therapy
CPT/HCPCS: 70551

== ENCOUNTER 2023-02-01 15:06 | Emergency (ER) | payer MEDICARE, OTHER, SELFPAY ==
--- NOTE | 2023-02-01 15:14 | ED_ITS ---
HPI - Psych General Chief Complaint: Altered Mental Status Stated Complaint: depression, confusion, agitation Time Seen by Provider: 02/01/23 19:47 Related Data Home Medications Medication Instructions Recorded Confirmed levothyroxine 100 mcg tablet 100 mcg PO DAILY@0630 04/22/22 04/24/22 denosumab 60 mg/mL subcutaneous 60 mg subcut [id number] 04/24/22 04/24/22 syringe (Prolia) Previous Rx's Medication Instructions Recorded lamotrigine 25 mg tablet 25 mg PO DAILY 30 days #30 tabs 05/02/22 lithium carbonate 150 mg capsule 150 mg PO BID 30 days #60 caps 05/02/22 melatonin 3 mg tablet 6 mg (2 x 3 mg) PO BEDTIME PRN 05/02/22 Insomnia 30 days #60 tabs memantine 10 mg tablet (Namenda) 10 mg PO DAILY 30 days #30 tabs 05/02/22 Allergies Allergy/AdvReac Type Severity Reaction Status Date / Time No Known Allergies Allergy Verified 04/22/22 21:44 [facility] Past Medical History Medical History Bipolar 1 disorder Dementia Hypothyroidism Social History Social History Household Members: Spouse Housing: House Do you presently have visiting nurse or other home services: Yes (Pt states he has a visiting nurse, will verify with ) Unable to assess alcohol history related to: Unknown Patient Tobacco Use Status: Former Tobacco user Quit Date: 1961 Tobacco use type: Pipe Smoked in Last 30 Days: No e-Cigarette/Vaping Use: Never Used Second Hand Smoke Exposure: No Use of substances other than those prescribed or required for medical reasons: No Advance Directives: No Advance Directives Information Provided: No Physical Exam 2 Vital Signs: Vital Signs: Last Vital Signs Temp 98.0 F 02/01/23 20:44 Pulse 54 02/01/23 21:30 Resp 16 02/01/23 21:30 BP 187/86 H 02/01/23 21:30 Pulse Ox 98 02/01/23 21:30 O2 Del Method Room Air 02/01/23 21:30 BMI result Body Mass Index 25.0 Course Course Course Narrative: RME - 82 yo male with history of dementia, bipolar disorder, hypothyroidism who presents to the ER for evaluation of worsening depression x2 weeks along with increased agitation and wandering at night. History of similar presentation in April, was hospitalized on S1 and was started on Namenda w/ improvement in symptoms. Had recent initiation of gabapentin at night and increase in lamotrgine by his psychiatrist. No SI or HI Plan: basic labs, CARE team consult Medical Decision Making Lab Data 02/01/23 15:52 02/01/23 15:52 Labs: Lab Results 02/01/23 Range/Units 15:52 WBC 7.3 (4.8-10.8) X10*3/uL RBC 4.43 L (4.60-5.80) X10*6/uL Hgb 14.4 (14.0-18.0) g/dl Hct 42.6 (42.0-52.0) % MCV 96.2 (80.0-98.0) fL MCH 32.5 (27.0-33.0) pg MCHC 33.8 (31.0-36.0) g/dl RDW 13.3 (11.0-16.0) % Plt Count 240 (160-400) X10*3/uL MPV 9.2 L (9.4-12.4) fL Immature Gran % (Auto) 0.6 H (0.0-0.4) % Neut % (Auto) 62.2 (45-73) % Lymph % (Auto) 24.1 (20-40) % [place] % (Auto) 11.8 H (2-11) % Eos % (Auto) 0.6 (0-4) % Baso % (Auto) 0.7 (0-2) % Lymph # (Auto) 1.8 (1.2-4.9) X10*3/uL [place] # (Auto) 0.9 (0.1-1.2) X10*3/uL Eos # (Auto) 0.0 (0.0-0.4) X10*3/uL Baso # (Auto) 0.1 (0.0-0.2) X10*3/uL Abs Immat Gran (auto) 0.04 H (0.00-0.03) X10*3/uL Absolute Neuts (auto) 4.5 (2.0-8.3) x10*3/uL Absolute Nucleated RBC 0.000 (0.0-0.012) X10*3/uL Nucleated RBC % (auto) 0.0 (0.0-0.2) /100WBC Sodium 141 (135-145) mmol/L Potassium 4.2 (3.3-5.1) mmol/L Chloride 102 (96-108) mmol/L Carbon Dioxide 30 H (22-29) mmol/L Anion Gap 13 (12-20) BUN 15 (9-16) mg/dL Creatinine 0.86 (0.5-1.4) mg/dL Estim Creat Clear Calc 58.5 Estimated GFR > 60 Random Glucose 83 (60-115) mg/dL Calcium 10.2 D (8.4-10.2) mg/dL Magnesium 2.2 (1.6-2.6) mg/dL Total Bilirubin 0.3 (0.0-1.0) mg/dL Direct Bilirubin 0.1 (0.0-0.5) mg/dL AST 22 (5-37) U/L ALT 12 (0-40) U/L Alkaline Phosphatase 66 (39-117) U/L Total Protein 7.7 (6.5-8.0) g/dL Albumin 4.2 (3.5-5.0) g/dL TSH 5.46 H (0.32-4.0) uIU/mL Free T4 0.95 (0.71-1.85) ng/dL Urine Color Yellow Urine Appearance Clear Urine pH 6.5 (5.0-9.0) Ur Specific [place] 1.015 (1.005-1.025) Urine Protein Negative (Neg-Trace) mg/dL Urine Glucose (UA) Negative (Negative) mg/dL Urine Ketones Negative (Negative) mg/dL Urine Blood Negative (Negative) Urine Nitrite Negative (Negative) Ur Leukocyte Esterase Trace H (Negative) Urine RBC 0-2 (0-2) /HPF Urine WBC 0-5 (0-5) /HPF Ur Squamous Epith Cells 0-2 (0-2) /HPF Urine Bacteria None Seen (None Seen) Hyaline Casts 0-2 (0-2) /LPF Urine Opiates Screen Not Detected (Not Detect) Urine Fentanyl Screen Not Detected (Not Detect) Ur Barbiturates Screen Not Detected (Not Detect) Ur Phencyclidine Scrn Not Detected (Not Detect) Ur Amphetamines Screen Not Detected (Not Detect) U Benzodiazepines Scrn Not Detected (Not Detect) Urine Cocaine Screen Not Detected (Not Detect) U Marijuana (THC) Screen Not Detected (Not Detect) Ethyl Alcohol < 10 mg/dL Discharge Plan Discharge Clinical Impression: Alzheimer's dementia, Depression Patient Disposition: Home, Self-Care Instructions: Depression (ED), Dementia (ED) Additional Instructions: 1. Resume all home medications as prescribed. 2. I highly recommend a further discussion with your psychiatrist regarding timing and benefit of the increase in lamotrigine. 3. I also recommend follow-up with your primary care doctor for further discussion regarding possible Alzheimer's progression. Return to the ER if there are any acute changes. Prescriptions: No Action levothyroxine 100 mcg tablet 100 mcg PO DAILY@0630 memantine [Namenda] 10 mg Tablet 10 mg PO DAILY 30 Days Qty: 30 0RF melatonin 3 mg Tablet 6 mg PO BEDTIME PRN (Reason: Insomnia) 30 Days Qty: 60 0RF lithium carbonate 150 mg capsule 150 mg PO BID 30 Days Qty: 60 0RF lamotrigine 25 mg tablet 25 mg PO DAILY 30 Days Qty: 30 0RF Prolia 60 mg/mL syringe 60 mg subcut [id number] Rx Instructions: LAST DOSE WAS ROUGHLY 04/12/22 PER PATIENT AND SPOUSE
[2023-02-01 15:17] VITALS: BP 146/63; PULSE 52; RESP 16; TEMP 36.3; O2SAT 98; BMI 25.0
--- NOTE | 2023-02-01 16:01 | MHC.EDTECH ---
Patient blood drawn and urine sample collected and sent to lab .
[2023-02-01 16:03] LABS: MANUAL DIFF FLAG NO
[2023-02-01 16:05] LABS: Appearance Urine Clear; Basophils Absolute Auto 0.1 X10*3/uL (0.0-0.2); Basophils Percent Auto 0.7 % (0-2); Color Urine Yellow; Eosinophils Percent Auto 0.6 % (0-4); Glucose Urine UA Negative (Negative); Hematocrit 42.6 % (42.0-52.0); Hemoglobin 14.4 g/dl (14.0-18.0); Imm Gran Abs Auto 0.04 X10*3/uL (0.00-0.03); Imm Gran Pct Auto 0.6 % (0.0-0.4); Leukocyte Esterase Urine Trace (Negative); Lymphocytes Absolute Auto 1.8 X10*3/uL (1.2-4.9); Lymphocytes Percent Auto 24.1 % (20-40); Mean Corpuscular HGB Conc 33.8 g/dl (31.0-36.0); Mean Corpuscular Hemoglobin 32.5 pg (27.0-33.0); Mean Corpuscular Volume 96.2 fL (80.0-98.0); Mean Platelet Volume 9.2 fL (9.4-12.4); Monocytes Absolute Auto 0.9 X10*3/uL (0.1-1.2); Monocytes Percent Auto 11.8 % (2-11); Neutrophils Absolute Auto 4.5 x10*3/uL (2.0-8.3); Neutrophils Percent Auto 62.2 % (45-73); Nitrite Urine Negative (Negative); PH 6.5 (5.0-9.0); Platelet Count 240 X10*3/uL (160-400); Red Blood Count 4.43 X10*6/uL (4.60-5.80); Red Cell Distribution Width 13.3 % (11.0-16.0); Specific Gravity - Urine 1.015 (1.005-1.025); UMIC TRIGGER UACC YES; Urine Blood Negative (Negative); Urine Ketones Negative (Negative); Urine Protein Negative (Neg-Trace); White Blood Count 7.3 X10*3/uL (4.8-10.8)
[2023-02-01 16:07] LABS: Bacteria Urine None Seen (None Seen); Hyaline Casts Urine 0-2 /LPF (0-2); RBC Urine 0-2 /HPF (0-2); Squamous Epithelial Cell Urine 0-2 /HPF (0-2); WBC Urine 0-5 /HPF (0-5)
[2023-02-01 16:19] LABS: Amphetamine Screen Urine Not Detected (Not Detect); Barbiturates, Urine Not Detected (Not Detect); Benzodiazepines Screen Urine Not Detected (Not Detect); Cannabinoid Screen Urine Not Detected (Not Detect); Cocaine Screen Urine Not Detected (Not Detect); Fentanyl, urine Not Detected (Not Detect); Opiate Screen Urine Not Detected (Not Detect); Phencyclidine Screen Urine Not Detected (Not Detect)
[2023-02-01 16:24] LABS: Alanine Aminotransferase 12 U/L (0-40); Albumin Level 4.2 g/dL (3.5-5.0); Alkaline Phosphatase 66 U/L (39-117); Anion Gap 13 (12-20); Aspartate Amino Transferase 22 U/L (5-37); Bilirubin Direct 0.1 mg/dL (0.0-0.5); Bilirubin Total 0.3 mg/dL (0.0-1.0); Blood Urea Nitrogen 15 mg/dL (9-16); Calcium 10.2 mg/dL (8.4-10.2); Carbon Dioxide 30 mmol/L (22-29); Chloride 102 mmol/L (96-108); Creatinine Clr Calc Pharmacy 58.5; Estimated Glomerular Filt Rate > 60; Glucose Random 83 mg/dL (60-115); Magnesium 2.2 mg/dL (1.6-2.6); Potassium 4.2 mmol/L (3.3-5.1); Sodium 141 mmol/L (135-145); Total Protein 7.7 g/dL (6.5-8.0)
[2023-02-01 16:39] LABS: Ethanol < 10 mg/dL
[2023-02-01 16:45] LABS: TSH reflex Free T4 5.46 uIU/mL (0.32-4.0)
[2023-02-01 17:34] LABS: Free T4 (Free Thyroxine) 0.95 ng/dL (0.71-1.85)
[2023-02-01 20:44] VITALS: BP 202/92; PULSE 56; RESP 18; TEMP 36.7; O2SAT 99
[2023-02-01 21:30] VITALS: BP 187/86; PULSE 54; RESP 16; O2SAT 98
== END 2023-02-01 22:22 | disposition home or self-care (01) ==
PROVIDERS: Physician Assistant; Emergency Provider Student in an Organized Health Care Education/Training Program
DX: G30.9 Alzheimer's disease, unspecified (principal); F02.83 Dementia in other diseases classified elsewhere, unspecified severity, with mood disturbance; Z91.83 Wandering in diseases classified elsewhere; Z87.891 Personal history of nicotine dependence; R45.1 Restlessness and agitation; R41.82 Altered mental status, unspecified; Z79.899 Other long term (current) drug therapy
CPT/HCPCS: 36415; 80048; 80076; 80307; 81001; 83735; 84439; 84443; 85025; 99284